=== PATIENT | female | born 1975 | race Caucasian/White ===

== ENCOUNTER 2018-12-23 17:29 | Emergency (ER) | payer SELFPAY ==
[2018-12-23 17:50] VITALS: BP 126/81; PULSE 89
--- NOTE | 2018-12-23 19:45 | EDM.PDOC ---
ED HPI GENERAL MEDICAL PROBLEM - General Chief Complaint: General Stated Complaint: SHARP PAIN IN ARM AND LEG AND NAUSEA Time Seen by Provider: 12/23/18 18:25 Source of Information: Reports: Patient, RN Notes Reviewed - History of Present Illness INITIAL COMMENTS - FREE TEXT/NARRATIVE: 43 year old female comes in with concern about increased dizziness the past 2 to 3 days. She has had intermitent shooting pain down her L arm, states she has been "dropping things with her L hand" Occasional "pounding sensation" L groin. No headache, neck or back pain. No fever, chills, chest pain, dyspnea, visual or speech difficulty. No difficulty with balance or walking. She has been very busy the last few days, drinking more caffiene than usual. Not aware of any injury. No hx Htn, diabetes or other known medical problems. - Related Data Allergies Allergy/AdvReac Type Severity Reaction Status Date / Time No Known Allergies Allergy Verified 12/23/18 17:46 Home Meds: Home Meds . [No Known Home Meds] 12/23/18 [History] Past Medical History - Past Health History Medical/Surgical History: Denies Medical/Surgical History Social & Family History - Tobacco Use Smoking Status *Q: Current Every Day Smoker Years of Tobacco use: 20 Packs/Tins Daily: 1 - Recreational Drug Use Recreational Drug Use: Yes Drug Use in Last 12 Months: Yes Other Recreational Drug Type: stopped drugs 9 months ago ED ROS GENERAL - Review of Systems Review Of Systems: See Below Constitutional: Denies: Fever, Chills, Diaphoresis HEENT: Denies: Sinus Problem, Throat Pain Respiratory: Denies: Shortness of Breath Cardiovascular: Denies: Chest Pain GI/Abdominal: Denies: Abdominal Pain, Nausea, Vomiting Musculoskeletal: Reports: Shoulder Pain, Arm Pain. Denies: Back Pain, Joint Pain Skin: Denies: Rash Neurological: Reports: Dizziness, Numbness (occasional numbness finger tips of L hand). Denies: Headache, Trouble Speaking, Difficulty Walking ED EXAM, GENERAL - Physical Exam Exam: See Below General Appearance: Alert, Anxious Eye Exam: Bilateral Eye: PERRL Throat/Mouth: Normal Inspection, Normal Oropharynx Head: Atraumatic Neck: Supple. No: Tender Lateral, Tender Midline Respiratory/Chest: No Respiratory Distress, Lungs Clear, Normal Breath Sounds Cardiovascular: Regular Rate, Rhythm GI/Abdominal: Soft, Non-Tender Back Exam: No: CVA Tenderness (L), CVA Tenderness (R) Extremities: Normal Inspection, Normal Range of Motion. No: Pedal Edema, Leg Pain, Redness Neurological: Alert, Oriented, No Motor/Sensory Deficits, Other (finger to nose testing normal) Skin Exam: Warm, Dry, Normal Color, No Rash EKG INTERPRETATION EKG Date: 12/23/18 Rhythm: NSR [place]: Normal P-Wave: Present QRS: Normal ST-T: Normal Course - Vital Signs Last Recorded V/S: Last Vital Signs Temp 99.2 F 12/23/18 17:47 Pulse 89 12/23/18 17:47 Resp 16 12/23/18 17:47 BP 126/81 12/23/18 17:47 Pulse Ox 100 12/23/18 17:47 - Orders/Labs/Meds Orders: Active Orders 24 hr Category Date Time Status EKG 12 Lead [EKG Documentation Completion] [RC] STAT Care 12/23/18 18:48 Active TSH [CHEM] Stat Lab 12/23/18 20:03 Ordered Labs: Laboratory Tests 12/23/18 12/23/18 Range/Units 18:59 18:59 WBC 10.72 H (3.98-10.04) K/mm3 RBC 4.20 (3.98-5.22) M/mm3 Hgb 13.6 (11.2-15.7) gm/dl Hct 39.5 (34.1-44.9) % MCV 94.0 (79.4-94.8) fl MCH 32.4 H (25.6-32.2) pg MCHC 34.4 (32.2-35.5) g/dl RDW Std Deviation 40.9 (36.4-46.3) fL Plt Count 273 (182-369) K/mm3 MPV 9.9 (9.4-12.3) fl Neut % (Auto) 57.2 (34.0-71.1) % Lymph % (Auto) 33.6 (19.3-51.7) % [place] % (Auto) 6.3 (4.7-12.5) % Eos % (Auto) 2.2 (0.7-5.8) Baso % (Auto) 0.6 (0.1-1.2) % Neut # (Auto) 6.13 (1.56-6.13) K/mm3 Lymph # (Auto) 3.60 (1.18-3.74) K/mm3 [place] # (Auto) 0.68 H (0.24-0.36) K/mm3 Eos # (Auto) 0.24 (0.04-0.36) K/mm3 Baso # (Auto) 0.06 (0.01-0.08) K/mm3 Manual Slide Review Sodium 139 (136-145) mEq/L Potassium 3.5 (3.5-5.1) mEq/L Chloride 106 (98-107) mEq/L Carbon Dioxide 26 (21-32) mEq/L Anion Gap 10.5 (5-15) BUN 10 (7-18) mg/dL Creatinine 0.7 (0.55-1.02) mg/dL Est Cr Clr Drug Dosing 77.39 mL/min Estimated GFR (MDRD) > 60 (>60) mL/min BUN/Creatinine Ratio 14.3 (14-18) Glucose 85 (74-106) mg/dL Calcium 8.7 (8.5-10.1) mg/dL Total Bilirubin 0.2 (0.2-1.0) mg/dL AST 11 L (15-37) U/L ALT 9 L (14-59) U/L Alkaline Phosphatase 45 L (46-116) U/L Total Protein 7.2 (6.4-8.2) g/dl Albumin 3.7 (3.4-5.0) g/dl Globulin 3.5 gm/dL Albumin/Globulin Ratio 1.1 (1-2) Departure - Departure Time of Disposition: 19:51 Disposition: Home, Self-Care 01 Condition: Fair Clinical Impression: Dizziness, Cervical radiculopathy - Discharge Information Referrals: PCP,None [Primary Care Provider] - Forms: ED Department Discharge Additional Instructions: rest, drink plenty of water to maintain hydration, advil or ibuprofen 2 to 3 times daily if needed for discomfort. Try reduce caffeine intake. Eat regular meals and snacks. Follow up clinic if not getting back to normal within 2 to 3 days as expected. Call [phone] if needed for appointment. Return to ED if symptoms worsening in any way. - My Orders Last 24 Hours: My Active Orders 12/23/18 18:48 EKG 12 Lead [EKG Documentation Completion] [RC] STAT 12/23/18 20:03 TSH [CHEM] Stat - Assessment/Plan Last 24 Hours: My Active Orders 12/23/18 18:48 EKG 12 Lead [EKG Documentation Completion] [RC] STAT 12/23/18 20:03 TSH [CHEM] Stat
== END 2018-12-23 20:13 | disposition home or self-care (01) ==
LOC: JD.ED 17:29
DX: M54.12 Radiculopathy, cervical region (principal); R42 Dizziness and giddiness; F17.210 Nicotine dependence, cigarettes, uncomplicated
CPT/HCPCS: 36415; 80053; 84443; 85025; 93005; 93010; 99283; 99284-25

== ENCOUNTER 2020-03-14 09:17 | Emergency (ER) | payer SELFPAY ==
--- NOTE | 2020-03-14 09:52 | EDM.PDOC ---
ED HPI GENERAL MEDICAL PROBLEM - General Chief Complaint: ENT Problem Stated Complaint: LOSS OF VISION IN RIGHT EYE Time Seen by Provider: 03/14/20 09:35 Source of Information: Reports: Patient, Family History Limitations: Reports: No Limitations - History of Present Illness INITIAL COMMENTS - FREE TEXT/NARRATIVE: The patient presents with right sided vision loss. She said at about 8pm last night she was having intercourse and she developed head pressure and she lost vision in her right eye. She went to bed thinking this would get better but it did not. When she covers her left eye she can see shadows in the right eye and has 20/200 vision. In the left eye she has 20/20. With both eyes open she cannot see in the right visual field. This has never happened before. She does have a history of migraines when she was younger but she never had visual changes with it. She feels shaky all over. She has no numbness or weakness. She has no fever, chills, cough, congestion, runny nose, chest pain, shortness of breath, abdominal pain, nausea or vomiting. She has no medical problems. Onset: Sudden Duration: Day(s): (last night at 8pm) Location: Reports: Head Quality: Reports: Pressure Severity: Moderate Improves with: Reports: None Worsens with: Reports: None Associated Symptoms: Reports: Headaches. Denies: Chest Pain, Cough, Fever/Chills, Nausea/Vomiting, Shortness of Breath Headache Pain Score (Numeric/FACES): 6 - Related Data Allergies Allergy/AdvReac Type Severity Reaction Status Date / Time No Known Allergies Allergy Verified 03/14/20 09:27 Home Meds: Home Meds . [No Known Home Meds] 12/23/18 [History] Past Medical History - Past Health History Medical/Surgical History: Denies Medical/Surgical History Social & Family History - Tobacco Use Tobacco Use Status *Q: Current Every Day Tobacco User Years of Tobacco use: 20 Packs/Tins Daily: 1 - Caffeine Use Caffeine Use: Reports: Coffee - Recreational Drug Use Recreational Drug Use: No ED ROS ENT - Review of Systems Review Of Systems: See Below Constitutional: Reports: No Symptoms HEENT: Reports: Vision Change Respiratory: Reports: No Symptoms Cardiovascular: Reports: No Symptoms Endocrine: Reports: No Symptoms GI/Abdominal: Reports: No Symptoms : Reports: No Symptoms Musculoskeletal: Reports: No Symptoms Skin: Reports: No Symptoms Neurological: Reports: Headache. Denies: Numbness, Weakness ED EXAM, ENT - Physical Exam Exam: See Below Exam Limited By: No Limitations General Appearance: Alert, No Apparent Distress Eye Exam: Right Eye: Vision Changes, Bilateral Eye: EOMI, Normal Fundi, PERRL Ears: Normal External Exam Nose: Normal Inspection Head: Atraumatic, Normocephalic Neck: Normal Inspection Respiratory/Chest: No Respiratory Distress, Lungs Clear, Normal Breath Sounds Cardiovascular: Regular Rate, Rhythm, No Edema, No Murmur GI/Abdominal: Soft, Non-Tender, No Organomegaly, No Mass Back: Normal Inspection Extremities: Normal Inspection Neurological: Alert, Oriented, No Motor/Sensory Deficits Course - Vital Signs Last Recorded V/S: Last Vital Signs Temp 97.6 F 03/14/20 09:24 Pulse 74 03/14/20 09:24 Resp 18 03/14/20 09:24 BP 129/84 03/14/20 09:24 Pulse Ox 100 03/14/20 09:24 - Orders/Labs/Meds Orders: Active Orders 24 hr Category Date Time Status Cardiac Monitoring [RC] . DIRECTED Care 03/14/20 09:44 Active Labs: Laboratory Tests 03/14/20 03/14/20 03/14/20 Range/Units 09:56 09:56 09:56 WBC 11.54 H (3.98-10.04) K/mm3 RBC 4.58 (3.98-5.22) M/mm3 Hgb 14.7 (11.2-15.7) gm/dl Hct 43.2 (34.1-44.9) % MCV 94.3 (79.4-94.8) fl MCH 32.1 (25.6-32.2) pg MCHC 34.0 (32.2-35.5) g/dl RDW Std Deviation 42.7 (36.4-46.3) fL Plt Count 253 (182-369) K/mm3 MPV 10.0 (9.4-12.3) fl Neut % (Auto) 75.3 H (34.0-71.1) % Lymph % (Auto) 17.7 L (19.3-51.7) % [place] % (Auto) 5.5 (4.7-12.5) % Eos % (Auto) 1.0 (0.7-5.8) Baso % (Auto) 0.3 (0.1-1.2) % Neut # (Auto) 8.69 H (1.56-6.13) K/mm3 Lymph # (Auto) 2.04 (1.18-3.74) K/mm3 [place] # (Auto) 0.64 H (0.24-0.36) K/mm3 Eos # (Auto) 0.12 (0.04-0.36) K/mm3 Baso # (Auto) 0.03 (0.01-0.08) K/mm3 Manual Slide Review Normal smear ESR 6 (0-20) mm/hr PT 10.7 (9.7-12.0) SECONDS INR 1.00 APTT 23.6 (21.7-31.4) SECONDS D-Dimer, Quantitative 0.49 (0.19-0.50) mg/L Sodium (136-145) mEq/L Potassium (3.5-5.1) mEq/L Chloride (98-107) mEq/L Carbon Dioxide (21-32) mEq/L Anion Gap (5-15) BUN (7-18) mg/dL Creatinine (0.55-1.02) mg/dL Est Cr Clr Drug Dosing mL/min Estimated GFR (MDRD) (>60) mL/min BUN/Creatinine Ratio (14-18) Glucose (74-106) mg/dL Calcium (8.5-10.1) mg/dL Total Bilirubin (0.2-1.0) mg/dL AST (15-37) U/L ALT (14-59) U/L Alkaline Phosphatase (46-116) U/L C-Reactive Protein (<1.0) mg/dL Total Protein (6.4-8.2) g/dl Albumin (3.4-5.0) g/dl Globulin gm/dL Albumin/Globulin Ratio (1-2) 03/14/20 Range/Units 09:56 WBC (3.98-10.04) K/mm3 RBC (3.98-5.22) M/mm3 Hgb (11.2-15.7) gm/dl Hct (34.1-44.9) % MCV (79.4-94.8) fl MCH (25.6-32.2) pg MCHC (32.2-35.5) g/dl RDW Std Deviation (36.4-46.3) fL Plt Count (182-369) K/mm3 MPV (9.4-12.3) fl Neut % (Auto) (34.0-71.1) % Lymph % (Auto) (19.3-51.7) % [place] % (Auto) (4.7-12.5) % Eos % (Auto) (0.7-5.8) Baso % (Auto) (0.1-1.2) % Neut # (Auto) (1.56-6.13) K/mm3 Lymph # (Auto) (1.18-3.74) K/mm3 [place] # (Auto) (0.24-0.36) K/mm3 Eos # (Auto) (0.04-0.36) K/mm3 Baso # (Auto) (0.01-0.08) K/mm3 Manual Slide Review ESR (0-20) mm/hr PT (9.7-12.0) SECONDS INR APTT (21.7-31.4) SECONDS D-Dimer, Quantitative (0.19-0.50) mg/L Sodium 140 (136-145) mEq/L Potassium 4.5 (3.5-5.1) mEq/L Chloride 103 (98-107) mEq/L Carbon Dioxide 24 (21-32) mEq/L Anion Gap 17.5 H (5-15) BUN 11 (7-18) mg/dL Creatinine 0.9 (0.55-1.02) mg/dL Est Cr Clr Drug Dosing 59.57 mL/min Estimated GFR (MDRD) > 60 (>60) mL/min BUN/Creatinine Ratio 12.2 L (14-18) Glucose 106 (74-106) mg/dL Calcium 9.4 (8.5-10.1) mg/dL Total Bilirubin 0.5 (0.2-1.0) mg/dL AST 14 L (15-37) U/L ALT 9 L (14-59) U/L Alkaline Phosphatase 40 L (46-116) U/L C-Reactive Protein < 0.2 (<1.0) mg/dL Total Protein 7.6 (6.4-8.2) g/dl Albumin 3.9 (3.4-5.0) g/dl Globulin 3.7 gm/dL Albumin/Globulin Ratio 1.1 (1-2) Meds: Medications Discontinued Medications Generic Name Dose Route Start Last Admin Trade Name Magi PRN Reason Stop Dose Admin Aspirin 324 mg 03/14/20 11:18 Aspirin PO 03/14/20 11:19 ONETIME ONE - Re-Assessments/Exams Free Text/Narrative Re-Assessment/Exam: 03/14/20 09:53 I ordered labs and a CT of her head. She had 20/20 in the left eye and 20/200 in the right eye. Her pressure was 18 in the left eye and 26 in the right eye. Structurally the eye looks normal. Funduscopic exam was normal. 03/14/20 11:04 Her WBC was slightly elevated at 11.54. Her D-dimer, PT and PTT are negative. Her anion gap was elevated at 17.5. The CT of her head shows a low density area within the medial left occipital and parietal junction. This may represent early infarct. Recommend MRI to confirm. No findings of intracranial hemorr odalys is seen. 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 03/14/20 11:27 Dr Pham agreed she had a stroke. He recommended she come there for further testing. I talked with Dr Nash the hospitalist and he wanted an aspirin given. I have ordered that. Departure - Departure Time of Disposition: 11:35 Disposition: DC/Tfer to Acute Hospital 02 Condition: Serious Clinical Impression: CVA (cerebral vascular accident) Qualifiers: CVA mechanism: unspecified Qualified Code(s): I63.9 - Cerebral infarction, unspecified - Discharge Information Referrals: PCP,None [Primary Care Provider] - Forms: ED Department Discharge Sepsis Event Note (ED) - Evaluation Sepsis Screening Result: No Definite Risk - Focused Exam Vital Signs: Vital Signs Temp Pulse Resp BP Pulse Ox 03/14/20 09:24 97.6 F 74 18 129/84 100 - My Orders Last 24 Hours: My Active Orders 03/14/20 09:44 Cardiac Monitoring [RC] . DIRECTED - Assessment/Plan Last 24 Hours: My Active Orders 03/14/20 09:44 Cardiac Monitoring [RC] . DIRECTED
--- NOTE | 2020-03-14 10:36 | CT ---
Technique stated that intravenous contrast was utilized. This is incorrect and intravenous contrast was not utilized. --- Addendum1 above dictated on [03/14/2020 12:53] by [Patrick Garcia Hilton J.] --- --- Addendum1 above signed on [03/14/2020 12:54] by [Patrick Garcia Hilton J.] --- --- Original report below dictated on [03/14/2020 10:32] by [Patrick Garcia Hilton J.] --- --- Original report below signed on [03/14/2020 10:33] by [Patrick Garcia Hilton J.] --- Head CT Technique: Multiple axial sections through the brain were obtained. Intravenous contrast was utilized. Reconstructed coronal and sagittal images were obtained. Comparison: No prior intracranial imaging is available. Findings: Ventricles along with basal cisterns and sulci over the convexities are within normal limits. Diminished density is noted at the left occipital and parietal junction. This low density measures approximately 2.6 cm x 2.8 cm x 2.7 cm. No other abnormal parenchymal density is appreciated. No evidence of intracranial hemorrhage. No midline shift or mass-effect is appreciated. Bone window settings were reviewed. No definite retrobulbar abnormality is appreciated within the visualized orbits. Visualized mastoid sinuses and visualized paranasal sinuses show nothing acute. No acute calvarial finding is appreciated. Impression: 1. Low density area within the medial left occipital and parietal junction. This may represent early infarct. Recommend MRI to confirm. 2. No findings of intracranial hemorrhage is seen. Diagnostic code #5 --- Addendum1 signed ---
[2020-03-14] MEDS ORDERED: Aspirin 81 MG Tab.Chew PO ONE (11:18)
[2020-03-14 13:52] VITALS: BP 129/89; PULSE 88
== END 2020-03-14 11:56 ==
LOC: JD.ED 09:17
DX: I63.9 Cerebral infarction, unspecified (principal); F17.210 Nicotine dependence, cigarettes, uncomplicated
CPT/HCPCS: 36415; 70450; 80053; 85025; 85379; 85610; 85652; 85730; 86140; 87635; 93005; 99285; A9270; 93010; U0002

== ENCOUNTER 2020-03-31 16:54 | Emergency (ER) | payer MEDICAID ==
--- NOTE | 2020-03-31 18:00 | CT ---
Head CT Technique: Multiple axial sections through the brain were obtained. Intravenous contrast was not utilized. Reconstructed coronal and sagittal images were obtained. Comparison: Prior head CT exam of 03/14/20. Findings: Diminished density is again noted within the posterior left parieto-occipital region. This is similar to prior exam in density and size. No other abnormal parenchymal densities are seen. No evidence of intracranial hemorrhage. No midline shift or mass-effect is appreciated. Bone window settings were reviewed. Visualized mastoid sinuses and visualized paranasal sinuses show nothing acute. No acute calvarial abnormality is seen. Impression: 1. Low density within the left posterior parieto-occipital region. This remains stable from previous study. 2. No other acute abnormality is definitely appreciated on noncontrast head CT. Note: Please correlate if patient's symptoms warrant further evaluation by MRI. Diagnostic code #3
--- NOTE | 2020-03-31 18:02 | EDM.PDOC ---
ED HPI GENERAL MEDICAL PROBLEM - General Chief Complaint: Neuro Symptoms/Deficits Stated Complaint: HEADACHE/NUMBNESS IN HEAD/HIGH BP Time Seen by Provider: 03/31/20 17:10 Source of Information: Reports: Patient, RN Notes Reviewed - History of Present Illness INITIAL COMMENTS - FREE TEXT/NARRATIVE: 44 yr old female sent here from clinic after going to clinic with sx of [place] and R sided facial and forehead "numbness" but on questioning described as more of a fullness and pressure sensation. Hx of a "stroke" with loss of central and R sided peripheral vision R eye about 16 days ago. She was diagnosed here, transferred to [facility]. Head CT showed a area of low density left occipital parietal area. No upper or lower extremity symptoms today. No worsening of vision, no facial droop or speech difficulty today. She is currently on aspirin and plavix. This was called a stroke alert based on initial presentation and hx of stroke about 16 days ago. Left Headache Pain Score (Numeric/FACES): 4 - Related Data Allergies Allergy/AdvReac Type Severity Reaction Status Date / Time No Known Allergies Allergy Verified 03/31/20 17:10 Home Meds: Home Meds Aspirin 81 mg PO DAILY 03/31/20 [History] Clopidogrel [Plavix] 75 mg PO DAILY 03/31/20 [History] atorvaSTATin [Lipitor] 20 mg PO BEDTIME 03/31/20 [History] Past Medical History - Past Health History Medical/Surgical History: Denies Medical/Surgical History HEENT History: Reports: Impaired Vision Cardiovascular History: Reports: Heart Murmur, Other (See Below) Other Cardiovascular History: pts states she has a "hole" in the back of her heart EDI ARCHITECT History: Reports: , Other (See Below) Other EDI ARCHITECT History: excessive vaginal bleeding Neurological History: Reports: CVA, Migraines - Past Surgical History HEENT Surgical History: Reports: Oral Surgery Cardiovascular Surgical History: Reports: Other (See Below) Female Surgical History: Reports: Section, Tubal Ligation Social & Family History - Family History Family Medical History: No Pertinent Family History - Tobacco Use Tobacco Use Status *Q: Current Every Day Tobacco User Years of Tobacco use: 20 Packs/Tins Daily: 0.4 - Caffeine Use Caffeine Use: Reports: Coffee - Recreational Drug Use Recreational Drug Use: No ED ROS GENERAL - Review of Systems Review Of Systems: See Below Constitutional: Denies: Fever, Chills, Diaphoresis HEENT: Denies: Rhinitis, Sinus Problem, Throat Pain, Vertigo, Vision Change Respiratory: Denies: Shortness of Breath Cardiovascular: Denies: Chest Pain GI/Abdominal: Denies: Abdominal Pain, Nausea, Vomiting Musculoskeletal: Denies: Neck Pain, Back Pain Skin: Reports: No Symptoms Neurological: Reports: Headache. Denies: Numbness, Tingling, Trouble Speaking, Difficulty Walking, Weakness ED EXAM, NEURO - Physical Exam Exam: See Below General Appearance: Alert, Anxious (mild) Eye Exam: Bilateral Eye: Other (pupils are mid size, equal, mildly reactive bilat) Ears: Normal External Exam Throat/Mouth: Normal Inspection, Normal Oropharynx Head Exam: Atraumatic Neck: Supple Respiratory/Chest: No Respiratory Distress, Lungs Clear, Normal Breath Sounds Cardiovascular: Regular Rate, Rhythm Neurological: Alert, No Motor/Sensory Deficits, Oriented x 3, Other (no neurologic drift, finger to nose testing normal, nl and fluent speech pattern, no facial droop) Extremities: Normal Inspection, Normal Range of Motion Skin Exam: Warm, Dry, Normal Color #1 Interpretation EKG Date: 03/31/20 Rhythm: NSR [place]: Normal P-Wave: Present QRS: Normal ST-T: Normal QT: Normal Course - Vital Signs Last Recorded V/S: Last Vital Signs Temp 96.8 F L 03/31/20 17:01 Pulse 66 03/31/20 18:25 Resp 18 03/31/20 18:25 BP 113/74 03/31/20 18:25 Pulse Ox 97 03/31/20 18:25 - Orders/Labs/Meds Orders: Active Orders 24 hr Category Date Time Status Blood Glucose Check, Bedside [RC] ONETIME Care 03/31/20 17:09 Active EKG 12 Lead [EKG Documentation Completion] [] STAT Care 03/31/20 17:30 Active Labs: Laboratory Tests 03/31/20 03/31/20 03/31/20 Range/Units 17:09 18:11 18:11 WBC 9.22 (3.98-10.04) K/mm3 RBC 4.38 (3.98-5.22) M/mm3 Hgb 14.1 (11.2-15.7) gm/dl Hct 41.2 (34.1-44.9) % MCV 94.1 (79.4-94.8) fl MCH 32.2 (25.6-32.2) pg MCHC 34.2 (32.2-35.5) g/dl RDW Std Deviation 42.2 (36.4-46.3) fL Plt Count 280 (182-369) K/mm3 MPV 10.0 (9.4-12.3) fl Neut % (Auto) 60.1 (34.0-71.1) % Lymph % (Auto) 30.7 (19.3-51.7) % [place] % (Auto) 5.7 (4.7-12.5) % Eos % (Auto) 2.8 (0.7-5.8) Baso % (Auto) 0.5 (0.1-1.2) % Neut # (Auto) 5.53 (1.56-6.13) K/mm3 Lymph # (Auto) 2.83 (1.18-3.74) K/mm3 [place] # (Auto) 0.53 H (0.24-0.36) K/mm3 Eos # (Auto) 0.26 (0.04-0.36) K/mm3 Baso # (Auto) 0.05 (0.01-0.08) K/mm3 Sodium 143 (136-145) mEq/L Potassium 3.9 (3.5-5.1) mEq/L Chloride 104 (98-107) mEq/L Carbon Dioxide 27 (21-32) mEq/L Anion Gap 15.9 H (5-15) BUN 11 (7-18) mg/dL Creatinine 0.7 (0.55-1.02) mg/dL Est Cr Clr Drug Dosing 76.58 mL/min Estimated GFR (MDRD) > 60 (>60) mL/min BUN/Creatinine Ratio 15.7 (14-18) Glucose 101 (74-106) mg/dL POC Glucose 74 (70-105) mg/dL Calcium 9.4 (8.5-10.1) mg/dL Total Bilirubin 0.3 (0.2-1.0) mg/dL AST 14 L (15-37) U/L ALT 8 L (14-59) U/L Alkaline Phosphatase 41 L (46-116) U/L Total Protein 7.4 (6.4-8.2) g/dl Albumin 3.9 (3.4-5.0) g/dl Globulin 3.5 gm/dL Albumin/Globulin Ratio 1.1 (1-2) - Re-Assessments/Exams Free Text/Narrative Re-Assessment/Exam: 03/31/20 18:15 Small area of diminished density is again noted within the left parieto- occipital region. No blood. See Radiology report for details. Initial glucose was only 74. Have given her something to drink, repeat glucose over 100. Departure - Departure Time of Disposition: 19:00 Disposition: Home, Self-Care 01 Condition: Good Clinical Impression: Hypoglycemia Headache Qualifiers: Headache type: unspecified Headache chronicity pattern: acute headache Intractability: not intractable Qualified Code(s): R51.9 - Headache, unspecified - Discharge Information Referrals: PCP,None [Primary Care Provider] - Forms: ED Department Discharge Additional Instructions: Your blood sugar was mildly low on arrival to ED at just 74. Any blood sugar below around 80 can cause symptoms of weakness, dizziness, possible speech difficulty and other stroke like symptoms. Eat regular meals and snacks to keep your blood sugar in a more normal range. Stop smoking as planned. Continue with further testing as planned. Continue current medications. Return to ED as needed if symptoms worsening in any way. Sepsis Event Note (ED) - Evaluation Sepsis Screening Result: No Definite Risk - Focused Exam Vital Signs: Vital Signs Temp Pulse Resp BP Pulse Ox 03/31/20 18:25 66 18 113/74 97 03/31/20 17:01 96.8 F L 72 17 135/96 H 100 - My Orders Last 24 Hours: My Active Orders 03/31/20 17:09 Blood Glucose Check, Bedside [RC] ONETIME 03/31/20 17:30 EKG 12 Lead [EKG Documentation Completion] [RC] STAT - Assessment/Plan Last 24 Hours: My Active Orders 03/31/20 17:09 Blood Glucose Check, Bedside [RC] ONETIME 03/31/20 17:30 EKG 12 Lead [EKG Documentation Completion] [RC] STAT
[2020-03-31 18:29] VITALS: BP 113/74; PULSE 66
== END 2020-03-31 18:55 | disposition home or self-care (01) ==
LOC: JD.ED 16:54
DX: R51.9 Headache, unspecified (principal); E16.2 Hypoglycemia, unspecified; Z72.0 Tobacco use; Z79.82 Long term (current) use of aspirin; Z79.02 Long term (current) use of antithrombotics/antiplatelets
CPT/HCPCS: 36415; 70450; 70450-26; 80053; 82962; 85025; 93005; 93010; 99284; 99284-25

== ENCOUNTER 2020-06-10 13:03 | Emergency (ER) | payer OTHER ==
[2020-06-10 13:13] VITALS: BP 120/81; PULSE 74
--- NOTE | 2020-06-10 13:47 | EDM.PDOC ---
ED HPI GENERAL MEDICAL PROBLEM - General Chief Complaint: Eye Problems Stated Complaint: R EYE COMPLAINT/TWITCHING Time Seen by Provider: 06/10/20 13:32 Source of Information: Reports: Patient History Limitations: Reports: No Limitations - History of Present Illness INITIAL COMMENTS - FREE TEXT/NARRATIVE: 44-year-old female presents to the ED for evaluation of twitching of her right upper eyelid that started yesterday and was infrequent but is much more frequent and regular today. She has no control over this. Of concern to the patient is that she had a CVA 2 months ago which resulted in the loss of her visual field right temporal hemianopsia and mild left visual field loss in the medial visual field. It has not returned since the CVA. Her work-up identified that she has a hole in her heart. She is not clear whether this represents an atrial septal defect or a ventricular septal defect. She is scheduled for endovascular repair on Monday next week i.e. June 17. She does not have any other visual field deficits that are new and no other systemic signs of neurological symptoms. Appreciates that sunlight does bother her eyes quite extensively since her CVA. Her medications include Plavix 75 mg daily and aspirin 81 mg daily and Lipitor to reduce her serum cholesterol. 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 (see below) (None.) - Related Data Allergies Allergy/AdvReac Type Severity Reaction Status Date / Time No Known Allergies Allergy Verified 06/10/20 13:14 Home Meds: Home Meds Aspirin 81 mg PO DAILY 03/31/20 [History] Clopidogrel [Plavix] 75 mg PO DAILY 03/31/20 [History] atorvaSTATin [Lipitor] 20 mg PO BEDTIME 03/31/20 [History] Past Medical History - Past Health History Medical/Surgical History: Denies Medical/Surgical History HEENT History: Reports: Impaired Vision Cardiovascular History: Reports: Heart Murmur, High Cholesterol, Other (See Below) Other Cardiovascular History: pts states she has a "hole" in the back of her heart 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: Reports: , Other (See Below) Other 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 CONSULTANT History: excessive vaginal bleeding Neurological History: Reports: CVA, Migraines - Infectious Disease History Infectious Disease History: Reports: Influenza - Past Surgical History HEENT Surgical History: Reports: Oral Surgery Cardiovascular Surgical History: Reports: Other (See Below) Female Surgical History: Reports: Section, Tubal Ligation Social & Family History - Family History Family Medical History: No Pertinent Family History - Tobacco Use Tobacco Use Status *Q: Current Every Day Tobacco User Years of Tobacco use: 20 Packs/Tins Daily: 0.2 - Caffeine Use Caffeine Use: Reports: Coffee - Recreational Drug Use Recreational Drug Use: Yes Drug Use in Last 12 Months: No Recreational Drug Type: Reports: Methamphetamine - Living Situation & Occupation Living situation: Reports: Single Occupation: Unemployed ED ROS GENERAL - Review of Systems Review Of Systems: See Below Constitutional: Reports: Malaise, Fatigue (Since CVA.). Denies: Fever, Chills, Weight Loss HEENT: Reports: Glasses, Other (Itching of right upper eyelid today and yesterday.) Respiratory: Reports: No Symptoms Cardiovascular: Reports: Other (Has a known murmur of her heart with recent discovery of a hole in her heart. This was part of her CVA work-up. She was told that she had a murmur most of her life but she has never had an echocardiogram before. She is unable to identify to me whether this is an atrial septal defect or ventricula) Endocrine: Reports: Fatigue GI/Abdominal: Reports: No Symptoms : Reports: No Symptoms Musculoskeletal: Reports: No Symptoms Skin: Reports: No Symptoms Neurological: Reports: Other (She reports that her memory is somewhat impaired since CVA and of course loss of visual field in the right temporal aspect of her visual field bitemporal hemianopsia. She has a minimal defect of the medial visual field lower quadrant of her left eye as well.) Psychiatric: Reports: No Symptoms Hematologic/Lymphatic: Reports: No Symptoms ED EXAM GENERAL W FULL EYE - Physical Exam Exam: See Below Exam Limited By: No Limitations General Appearance: Alert, WD/WN, Anxious, Other (And anxious. Temperature is 36.3. Heart rate 74 and sinus respect rate is 12 with O2 sats 100% room air BP 120/81.) Eye Exam: Bilateral Eye: Normal Inspection, PERRL, Other (Patient has definite loss of the right temporal field i.e. temporal hemianopsia on visual field exam. She does have intermittent twitching of her right upper eyelid which is subtle to me but more obvious to the patient.) Eyelids: Bilateral: Other (She has intermittent twitching of her right upper eyelid.) Conjunctiva & Sclera: Bilateral: Normal Appearance Cornea Exam: Bilateral: Normal Appearance Extraocular Movements: Bilateral: Intact Pupils: Normal Accommodation Pupillary Size: Bilateral: 6 mm Pupillary Reaction: Right: Sluggish Anterior Chamber: Bilateral: Normal Appearance Comments: Visual field assessment patient has a right temporal hemianopsia. She appreciates this in the left eye as well when looking to the right in the inferior quadrant and medial aspect of her left visual field as well. Throat/Mouth: Normal Inspection, Normal Lips, Normal Oropharynx Neck: Normal Inspection, Supple, Non-Tender, Full Range of Motion. No: Carotid Bruit, Lymphadenopathy (L), Lymphadenopathy (R) Respiratory/Chest: No Respiratory Distress, Lungs Clear, Normal Breath Sounds, No Accessory Muscle Use Cardiovascular: Normal Peripheral Pulses, Regular Rate, Rhythm, No Edema, No Gallop, Systolic Murmur (Early systolic murmur graded at less than 1 out of 6 best appreciated left sternal border) GI/Abdominal: Normal Bowel Sounds, Soft, Non-Tender, No Organomegaly, No Diste ntion Extremities: Normal Inspection, Normal Range of Motion, Non-Tender, No Pedal Edema Neurological: Alert, Oriented, CN II-XII Intact, Normal Cognition Psychiatric: Normal Affect, Normal Mood Skin Exam: Warm, Dry, Intact, Normal Color, No Rash Course - Vital Signs Last Recorded V/S: Last Vital Signs Temp 36.3 C 06/10/20 13:10 Pulse 74 06/10/20 13:10 Resp 12 06/10/20 13:10 BP 120/81 06/10/20 13:10 Pulse Ox 100 06/10/20 13:10 - Radiology Interpretation Free Text/Narrative:: 44-year-old female presents to the ED due to development of twitching of her right upper eyelid yesterday. It was infrequent yesterday but much more frequent today and bothersome to the patient. She has never experienced this before. Patient suffered a CVA approximately 2 months ago and has lost visual acuity in her right eye in the temporal aspect. She has minimal loss of medial inferior quadrant in her left eye. This temporal hemianopsia of the right visual field has persisted and not improved since the CVA. The CVA prompted further investigations which include an echocardiogram which confirmed that she has a hole in her heart. It is unclear if this is an atrial septal defect or ventricular septal defect. Patient reports that she has been told she has a heart murmur off and on most of her life but has never had an echocardiogram before. 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 She is due for repair of the defect in her heart next Monday, June 17 endovascularly through the femoral artery. Examination did not reveal any further neurological deficits. She does have very subtle twitching of her right upper eyelid. Patient reassured that this is nothing to do with stroke or impending stroke. The cause of twitching of the upper eyelids is felt to do often be due to excessive eyestrain such as excessive reading or computer usage and it is unclear if of its etiology. It usually goes away on its own between 10 and 21 days. Departure - Departure Time of Disposition: 13:45 Disposition: Home, Self-Care 01 Condition: Fair Clinical Impression: Eyelid twitch - Discharge Information *PRESCRIPTION DRUG MONITORING PROGRAM REVIEWED*: Not Applicable *COPY OF PRESCRIPTION DRUG MONITORING REPORT IN PATIENT RANULFO: Not Applicable Referrals: PCP,None [Ordering Only Provider] - Forms: ED Department Discharge Additional Instructions: Evaluation in the emergency room today in regards to appreciating right upper eyelid twitching intermittently since yesterday. It was not as frequent yesterday but much more noticeable today. History of recent stroke with loss of your visual lateral/temporal field on the right side that has persisted. Upper eyelid twitching is of no concern. Exact cause is unknown. It often can be due to eyestrain from excessive reading or computer work. It will go away on its own within the next few weeks. The longest I have ever seen it last is 3 weeks. It is not related to underlying stroke that has occurred in the past. Sepsis Event Note (ED) - Evaluation Sepsis Screening Result: No Definite Risk - Focused Exam Vital Signs: Vital Signs Temp Pulse Resp BP Pulse Ox 06/10/20 13:10 36.3 C 74 12 120/81 100
== END 2020-06-10 13:54 | disposition home or self-care (01) ==
LOC: JD.ED 13:03
DX: R25.3 Fasciculation (principal); E78.00 Pure hypercholesterolemia, unspecified; Z86.73 Personal history of transient ischemic attack (TIA), and cerebral infarction without residual deficits; Z79.82 Long term (current) use of aspirin; Z79.02 Long term (current) use of antithrombotics/antiplatelets; Z79.899 Other long term (current) drug therapy; Z72.0 Tobacco use
CPT/HCPCS: 99283

== ENCOUNTER 2020-06-18 14:52 | Inpatient (IN) | payer MEDICAID, OTHER ==
--- NOTE | 2020-06-18 16:35 | EDM.PDOC ---
ED HPI GENERAL MEDICAL PROBLEM - General Chief Complaint: General Stated Complaint: COLD/SOB/HEAD PRESSURE Time Seen by Provider: 06/18/20 16:35 Source of Information: Reports: Patient History Limitations: Reports: No Limitations - History of Present Illness INITIAL COMMENTS - FREE TEXT/NARRATIVE: 44-year-old female presents to the ED after developing severe chills/rigors around noon hour today. She states she was so cold she could not warm up and put on excessive amount of close and turned up the heat. I note she was discharged from [facility] in [place] earlier this morning. Patient had undergone a endovascular repair of a large patent foramen ovale defect by Dr. Lane neurologist at [facility] in [place]. Procedure was carried out on June 18, 2020 is discovered as part of a work-up for a cerebrovascular accident which caused an infarct of the left medial occipital and temporal lobe ischemia without hemorrhagic transformation noted on MRI. She is known to have heterozygous prothrombin mutation but hematology felt this was unlikely be the cause of her stroke. She had a rather large patent foramen ovale with a right to left shunt given her rope score of 6 she denies feeling short of breath coughing and she never had any catheterization she has no dysuria urgency frequency no diarrhea or vomiting. She denies any bleeding from her right groin wound. She is walking with a slight limp. In the ED she definitely has a fever and is about 102 degrees by my assessment by palpation. CODE STATUS is DO NOT RESUSCITATE/DO NOT INTUBATE comfort measures only. Onset: Today, Sudden Onset Date: 06/18/20 Onset Time: 12:00 Duration: Hour(s):, Intermittent, Waxing/Waning Location: Reports: Generalized Quality: Reports: Ache (Neurolysed chills/rigors with fever.) Severity: Severe (Held headache.) Improves with: Reports: None (Severe chills/rigors especially around noon hour today.) Worsens with: Reports: None Context: Reports: Other (And underwent endovascular procedure yesterday in [facility] for closure of a large patent foramen ovale done endovascularly). Denies: Activity, Exercise, Lifting, Sick Contact, Trauma Associated Symptoms: Reports: Fever/Chills, Headaches, Loss of Appetite, Malaise, Weakness. Denies: Confusion, Chest Pain, Cough, cough w sputum, Diaphoresis, Nausea/Vomiting, Rash, Seizure, Shortness of Breath, Syncope Treatments METALLURGIST PROCESS: Reports: Other (see below) Right Head Pain Score (Numeric/FACES): 4 - Related Data Allergies Allergy/AdvReac Type Severity Reaction Status Date / Time No Known Allergies Allergy Verified 06/18/20 15:26 Home Meds: Home Meds Aspirin 81 mg PO DAILY 03/31/20 [History] Clopidogrel [Plavix] 75 mg PO DAILY 03/31/20 [History] atorvaSTATin [Lipitor] 20 mg PO BEDTIME 03/31/20 [History] Past Medical History - Past Health History Medical/Surgical History: Denies Medical/Surgical History HEENT History: Reports: Impaired Vision Cardiovascular History: Reports: Heart Murmur, High Cholesterol, Other (See Below) Other Cardiovascular History: pts states she has a "hole" in the back of her heart LAN SPECIALIST History: Reports: , Other (See Below) Other LAN SPECIALIST History: excessive vaginal bleeding Neurological History: Reports: CVA, Migraines Other Neuro History: CVA-03/18/20 Hematologic History: Reports: Other (See Below) Other Hematologic History: blood clotting disorder- makes her clot more - Infectious Disease History Infectious Disease History: Reports: Influenza - Past Surgical History HEENT Surgical History: Reports: Oral Surgery Cardiovascular Surgical History: Reports: Other (See Below) Other Cardiovascular Surgeries/Procedures: Pt reports she had sugery to close a hole in her heart. Female Surgical History: Reports: Section, Tubal Ligation Social & Family History - Family History Family Medical History: No Pertinent Family History - Tobacco Use Tobacco Use Status *Q: Current Every Day Tobacco User Years of Tobacco use: 20 Packs/Tins Daily: 0.5 - Caffeine Use Caffeine Use: Reports: Coffee - Recreational Drug Use Recreational Drug Use: No - Living Situation & Occupation Living situation: Reports: Single Occupation: Unemployed ED ROS GENERAL - Review of Systems Review Of Systems: See Below Constitutional: Reports: Fever, Chills, Malaise, Weakness, Fatigue, Decreased Appetite. Denies: Weight Loss HEENT: Reports: No Symptoms Respiratory: Reports: No Symptoms. Denies: Shortness of Breath, Wheezing, Pleuritic Chest Pain, Cough Cardiovascular: Reports: Dyspnea on Exertion, Lightheadedness. Denies: Chest Pain, Blood Pressure Problem, Claudication, Edema, Orthopnea Endocrine: Reports: Fatigue GI/Abdominal: Reports: Decreased Appetite. Denies: Abdominal Pain : Reports: No Symptoms Musculoskeletal: Reports: Muscle Pain (Mild generalized myalgia.) Skin: Reports: No Symptoms Neurological: Reports: Headache Psychiatric: Reports: No Symptoms Hematologic/Lymphatic: Reports: No Symptoms Immunologic: Reports: No Symptoms ED EXAM, GENERAL - Physical Exam Exam: See Below Exam Limited By: No Limitations General Appearance: Alert, WD/WN, No Apparent Distress, Other (Patient does feel very warm to palpation by my assessment. Temperatures only 37.4 degrees as recorded by the nursing staff. She feels much warmer than this. Heart rate was 100 and sinus tach on the monitor. Respiratory is 20 to 24/min with O2 sats of 99%. Initial blood pressure was 117/81 but f) Eye Exam: Bilateral Eye: Normal Inspection (No blepharal pallor or scleral icterus.), PERRL Throat/Mouth: Normal Inspection, Normal Lips, Normal Oropharynx Head: Atraumatic, Normocephalic Neck: Normal Inspection, Supple, Non-Tender, Full Range of Motion. No: Lymphadenopathy (L), Lymphadenopathy (R) Respiratory/Chest: No Respiratory Distress, Lungs Clear, Normal Breath Sounds, No Accessory Muscle Use, Prolonged Expiration Cardiovascular: Normal Peripheral Pulses, Regular Rate, Rhythm, No Edema, No Gallop, No Murmur, No Rub Peripheral Pulses: 3+: Carotid (L), Carotid (R), Posterior Tibial (L), Posterior Tibial (R), Dorsalis Pedis (L), Dorsalis Pedis (R) GI/Abdominal: Normal Bowel Sounds, Soft, Non-Tender, No Organomegaly, No Abnormal Bruit, No Mass, Pelvis Stable, Other (Wound in the right groin appears to be healing satisfactorily. There is an appropriate amount of hematoma and bruising in the area after having an endovascular procedure.) Back Exam: Normal Inspection. No: Full Range of Motion, CVA Tenderness (L), CVA Tenderness (R) Extremities: Normal Inspection, Normal Range of Motion, Non-Tender, No Pedal Edema Neurological: Alert, Oriented, CN II-XII Intact, Normal Cognition, Normal Gait Psychiatric: Normal Affect, Normal Mood Skin Exam: Warm, Dry, Intact, Normal Color, No Rash #1 Interpretation EKG Date: 06/18/20 Time: 17:25 Rhythm: NSR Rate (Beats/Min): 80 [place]: Normal P-Wave: Present (P wave is inverted V1) QRS: Other (Initial poor R wave progression may be due to lead placement. Mildly decreased voltage limb leads) ST-T: Other (Nonspecific T wave flattening aVL) QT: Normal EKG Interpretation Comments: Borderline ECG Course - Vital Signs Last Recorded V/S: Last Vital Signs Temp 37.8 C 06/18/20 17:39 Pulse 100 06/18/20 15:12 Resp 20 06/18/20 15:12 BP 117/81 06/18/20 15:12 Pulse Ox 99 06/18/20 15:12 - Orders/Labs/Meds Orders: Active Orders 24 hr Category Date Time Status Admission Status [Patient Status] [ADT] Routine ADT 06/18/20 20:03 Active EKG Documentation Completion [RC] STAT Care 06/18/20 16:47 Active CULTURE BLOOD [BC] Stat Lab 06/18/20 16:50 Received CULTURE BLOOD [BC] Stat Lab 06/18/20 17:10 Received Dextrose 5%-0.9% NaCl [Dextrose 5%-Normal Saline] 1,000 Med 06/18/20 16:45 Active ml IV ASDIRECTED Lactated Ringers [Ringers, Lactated] 1,000 ml Med 06/18/20 19:45 Active IV ASDIRECTED Potassium Chloride [KCl in Water 10 MEQ/100 ML] 10 meq Med 06/18/20 19:45 Active Premix Bag 1 bag IV Q1H Vancomycin 1.25 gm Med 06/18/20 19:37 Active Sodium Chloride 0.9% [Normal Saline] 250 ml IV ONETIME Blood Culture x2 Reflex Set [OM.PC] Stat Oth 06/18/20 16:47 Ordered Medication Orders Dextrose/Sodium Chloride (Dextrose 5%-Normal Saline) 1,000 mls @ 999 mls/hr IV ASDIRECTED TARUN Last Admin: 06/18/20 17:39 Dose: 999 mls/hr Documented by: [id number] Vancomycin HCl 1.25 gm/ Sodium (Chloride) 250 mls @ 250 mls/hr IV ONETIME ONE Stop: 06/18/20 20:36 Lactated Ringer's (Ringers, Lactated) 1,000 mls @ 500 mls/hr IV ASDIRECTED TARUN Potassium Chloride 10 meq/ (Premix) 100 mls @ 100 mls/hr IV Q1H TARUN Stop: 06/18/20 21:44 Labs: Laboratory Tests 06/18/20 06/18/20 06/18/20 Range/Units 16:50 16:50 16:50 WBC 11.12 H (3.98-10.04) K/mm3 RBC 3.93 L (3.98-5.22) M/mm3 Hgb 12.6 D (11.2-15.7) gm/dl Hct 37.4 (34.1-44.9) % MCV 95.2 H (79.4-94.8) fl MCH 32.1 (25.6-32.2) pg MCHC 33.7 (32.2-35.5) g/dl RDW Std Deviation 41.9 (36.4-46.3) fL Plt Count 188 D (182-369) K/mm3 MPV 10.5 (9.4-12.3) fl Neutrophils % (Manual) 83 H (40-60) % Band Neutrophils % 0 (0-10) % Lymphocytes % (Manual) 9 L (20-40) % Atypical Lymphs % 0 % Monocytes % (Manual) 8 (2-10) % Eosinophils % (Manual) 0 L (0.7-5.8) % Basophils % (Manual) 0 L (0.1-1.2) Platelet Estimate Adequate RBC Morph Comment Normal PT 11.3 (9.7-12.0) SECONDS INR 1.06 APTT 25.3 (21.7-31.4) SECONDS Sodium 139 (136-145) mEq/L Potassium 3.4 L (3.5-5.1) mEq/L Chloride 103 (98-107) mEq/L Carbon Dioxide 25 (21-32) mEq/L Anion Gap 14.4 (5-15) BUN 7 (7-18) mg/dL Creatinine 0.7 (0.55-1.02) mg/dL Est Cr Clr Drug Dosing 76.58 mL/min Estimated GFR (MDRD) > 60 (>60) mL/min BUN/Creatinine Ratio 10.0 L (14-18) Glucose 133 H (74-106) mg/dL Lactic Acid (0.4-2.0) mmol/L Calcium 8.3 L (8.5-10.1) mg/dL Magnesium 1.9 (1.8-2.4) mg/dl Total Bilirubin 0.4 (0.2-1.0) mg/dL AST 15 (15-37) U/L ALT 11 L (14-59) U/L Alkaline Phosphatase 39 L (46-116) U/L Troponin I 0.058 H* (0.00-0.056) ng/mL C-Reactive Protein 3.2 H* (<1.0) mg/dL NT-Pro-B Natriuret Pep (0-125) pg/mL Total Protein 6.7 (6.4-8.2) g/dl Albumin 3.5 (3.4-5.0) g/dl Globulin 3.2 gm/dL Albumin/Globulin Ratio 1.1 (1-2) Urine Color (Yellow) Urine Appearance (Clear) Urine pH (5.0-8.0) Ur Specific Minerva (1.005-1.030) Urine Protein (Negative) Urine Glucose (UA) (Negative) Urine Ketones (Negative) Urine Occult Blood (Negative) Urine Nitrite (Negative) Urine Bilirubin (Negative) Urine Urobilinogen (0.2-1.0) Ur Leukocyte Esterase (Negative) Urine RBC (0-5) /hpf Urine WBC (0-5) /hpf Ur Squamous Epith Cells (0-5) /hpf Urine Bacteria (FEW) /hpf Urine Mucus (FEW) /hpf SARS-CoV-2 RNA (JACIEL) (NEGATIVE) 06/18/20 06/18/20 06/18/20 Range/Units 16:50 16:50 17:45 WBC (3.98-10.04) K/mm3 RBC (3.98-5.22) M/mm3 Hgb (11.2-15.7) gm/dl Hct (34.1-44.9) % MCV (79.4-94.8) fl MCH (25.6-32.2) pg MCHC (32.2-35.5) g/dl RDW Std Deviation (36.4-46.3) fL Plt Count (182-369) K/mm3 MPV (9.4-12.3) fl Neutrophils % (Manual) (40-60) % Band Neutrophils % (0-10) % Lymphocytes % (Manual) (20-40) % Atypical Lymphs % % Monocytes % (Manual) (2-10) % Eosinophils % (Manual) (0.7-5.8) % Basophils % (Manual) (0.1-1.2) Platelet Estimate RBC Morph Comment PT (9.7-12.0) SECONDS INR APTT (21.7-31.4) SECONDS Sodium (136-145) mEq/L Potassium (3.5-5.1) mEq/L Chloride (98-107) mEq/L Carbon Dioxide (21-32) mEq/L Anion Gap (5-15) BUN (7-18) mg/dL Creatinine (0.55-1.02) mg/dL Est Cr Clr Drug Dosing mL/min Estimated GFR (MDRD) (>60) mL/min BUN/Creatinine Ratio (14-18) Glucose (74-106) mg/dL Lactic Acid 1.1 (0.4-2.0) mmol/L Calcium (8.5-10.1) mg/dL Magnesium (1.8-2.4) mg/dl Total Bilirubin (0.2-1.0) mg/dL AST (15-37) U/L ALT (14-59) U/L Alkaline Phosphatase (46-116) U/L Troponin I (0.00-0.056) ng/mL C-Reactive Protein (<1.0) mg/dL NT-Pro-B Natriuret Pep 558 H (0-125) pg/mL Total Protein (6.4-8.2) g/dl Albumin (3.4-5.0) g/dl Globulin gm/dL Albumin/Globulin Ratio (1-2) Urine Color Yellow (Yellow) Urine Appearance Clear (Clear) Urine pH 6.5 (5.0-8.0) Ur Specific Minerva 1.020 (1.005-1.030) Urine Protein Negative (Negative) Urine Glucose (UA) Negative (Negative) Urine Ketones Negative (Negative) Urine Occult Blood 1+ H (Negative) Urine Nitrite Negative (Negative) Urine Bilirubin Negative (Negative) Urine Urobilinogen 0.2 (0.2-1.0) Ur Leukocyte Esterase Negative (Negative) Urine RBC 0-5 (0-5) /hpf Urine WBC 0-5 (0-5) /hpf Ur Squamous Epith Cells 0-5 (0-5) /hpf Urine Bacteria Occasional (FEW) /hpf Urine Mucus Not seen (FEW) /hpf SARS-CoV-2 RNA (JACIEL) (NEGATIVE) 06/18/20 Range/Units 17:45 WBC (3.98-10.04) K/mm3 RBC (3.98-5.22) M/mm3 Hgb (11.2-15.7) gm/dl Hct (34.1-44.9) % MCV (79.4-94.8) fl MCH (25.6-32.2) pg MCHC (32.2-35.5) g/dl RDW Std Deviation (36.4-46.3) fL Plt Count (182-369) K/mm3 MPV (9.4-12.3) fl Neutrophils % (Manual) (40-60) % Band Neutrophils % (0-10) % Lymphocytes % (Manual) (20-40) % Atypical Lymphs % % Monocytes % (Manual) (2-10) % Eosinophils % (Manual) (0.7-5.8) % Basophils % (Manual) (0.1-1.2) Platelet Estimate RBC Morph Comment PT (9.7-12.0) SECONDS INR APTT (21.7-31.4) SECONDS Sodium (136-145) mEq/L Potassium (3.5-5.1) mEq/L Chloride (98-107) mEq/L Carbon Dioxide (21-32) mEq/L Anion Gap (5-15) BUN (7-18) mg/dL Creatinine (0.55-1.02) mg/dL Est Cr Clr Drug Dosing mL/min Estimated GFR (MDRD) (>60) mL/min BUN/Creatinine Ratio (14-18) Glucose (74-106) mg/dL Lactic Acid (0.4-2.0) mmol/L Calcium (8.5-10.1) mg/dL Magnesium (1.8-2.4) mg/dl Total Bilirubin (0.2-1.0) mg/dL AST (15-37) U/L ALT (14-59) U/L Alkaline Phosphatase (46-116) U/L Troponin I (0.00-0.056) ng/mL C-Reactive Protein (<1.0) mg/dL NT-Pro-B Natriuret Pep (0-125) pg/mL Total Protein (6.4-8.2) g/dl Albumin (3.4-5.0) g/dl Globulin gm/dL Albumin/Globulin Ratio (1-2) Urine Color (Yellow) Urine Appearance (Clear) Urine pH (5.0-8.0) Ur Specific Minerva (1.005-1.030) Urine Protein (Negative) Urine Glucose (UA) (Negative) Urine Ketones (Negative) Urine Occult Blood (Negative) Urine Nitrite (Negative) Urine Bilirubin (Negative) Urine Urobilinogen (0.2-1.0) Ur Leukocyte Esterase (Negative) Urine RBC (0-5) /hpf Urine WBC (0-5) /hpf Ur Squamous Epith Cells (0-5) /hpf Urine Bacteria (FEW) /hpf Urine Mucus (FEW) /hpf SARS-CoV-2 RNA (JACIEL) Negative (NEGATIVE) Meds: Medications Generic Name Dose Route Start Last Admin Trade Name Freq PRN Reason Stop Dose Admin Dextrose/Sodium Chloride 1,000 mls @ 999 mls/hr 06/18/20 16:45 06/18/20 17:39 Dextrose 5%-Normal Saline IV 999 mls/hr ASDIRECTED TARUN Administration Vancomycin HCl 1.25 gm/ Sodium 250 mls @ 250 mls/hr 06/18/20 19:37 Chloride IV 06/18/20 20:36 ONETIME ONE Lactated Ringer's 1,000 mls @ 500 mls/hr 06/18/20 19:45 Ringers, Lactated IV ASDIRECTED TARUN Potassium Chloride 10 meq/ 100 mls @ 100 mls/hr 06/18/20 19:45 Premix IV 06/18/20 21:44 Q1H TARUN Discontinued Medications Generic Name Dose Route Start Last Admin Trade Name Freq PRN Reason Stop Dose Admin Acetaminophen 975 mg 06/18/20 16:45 06/18/20 17:39 Acetaminophen 325 Mg Tab PO 06/18/20 16:46 975 mg ONETIME ONE Administration Linezolid 600 mg/ Premix 300 mls @ 300 mls/hr 06/18/20 17:02 06/18/20 18:10 IV 06/18/20 18:01 300 mls/hr ONETIME ONE Administration - Radiology Interpretation Free Text/Narrative:: 44-year-old female presents to the ED with acute onset of fever associate with chills and rigor development around noon today. Yesterday she underwent a endovascular procedure at [facility] in [place] by fryline attendant Dr. Lane for repair of a large patent foramen ovale. Apparently the procedure went very well. She was discharged home this morning and got home shortly before noon hour today. Clinically she is very warm to palpation and has had a few more chills since initial onset of illness. Plan septic work-up to be carried out. Chest x-ray urinalysis and ECG to be done. Tylenol 650 mg given by mouth for fever relief. IV will be D5 normal saline at open at this time since her blood pressure seems to be dropping. One blood pressure was systolic of 85. When she came in her blood pressure was 117 systolic. She will be started on broad- spectrum antibiotic particularly to cover staph aureus and MRSA as soon as blood cultures x2 have been collected. To Zyvox so that it provides coverage against strep pneumonia, staph aureus and MRSA. - Re-Assessments/Exams Free Text/Narrative Re-Assessment/Exam: 06/18/20 17:50 White count is 11.12 differential pending. Hemoglobin is 12.6 with hematocrit of 37.4 MCV 95.2 platelet count 188,000. PT is 11.3 with an INR of 1.06 and a PTT of 25.3. Lactic acid is 1.1. Chest x-ray done portably reveals normal lung zhao and normal-sized heart. There is evidence of a me tallic intracardiac device just to the Rt of the midline of the heart and spine compatible with recent occlusion of a patent foramen ovale. 06/18/20 18:16 Sodium is 139 with a potassium slightly low at 3.4. Chloride 103 with a bicarb of 25. Anion gap is 14.4. BUN is 7 with a creatinine of 0.7 and GFR greater than 60. Glucose 133 with a lactic acid of 1.1. Calcium is 8.3. Magnesium is 1.9. Bilirubin is 0.4 with an AST of 15 and an ALT of 11. Alk phosphatase is 39. Troponin I is minimally elevated at 0.058 with normal our laboratory up to 0.056. C-reactive protein is 3.2 BNP is 558. Total protein 6.7 with albumin fraction of 3.5. Urinalysis shows 1+ occult blood with the micro pending. 06/18/20 19:14 Differential on the white count is 83% neutrophils and no bands cells appreciated. Code status is identified to be DO NOT RESUSCITATE/DO NOT INTUBATE comfort care measures only 06/18/20 19:38 I have spoken with --Department of cardiology at [facility] in [place] who performed her cardiac procedure yesterday at 8 under strict sterile conditions and the patient did receive a dose of cefazolin preoperatively. It therefore appears that she was developing illness prior to this surgical procedure. The plan will therefore be to keep her in our hospital until we get the results of the cultures back. Dr. Mckee would appreciate being appraised of the findings. I will give her a 1250 mg of vancomycin IV following the Zosyn to make sure that we have brought antibiotic biotic spectrum coverage. 06/18/20 20:03 COVID-19 screen is negative. I will therefore place orders for admission to the hospital. I believe the nursing staff believes he will go to the intensive care unit due to staffing. 06/18/20 20:26 COVID-19 screen is negative. However spoke with Dr. Del Toro on- call hospitalist and he will admit the patient to the hospital. I believe she will be going to ICU as an overflow patient. Departure - Departure Time of Disposition: 20:26 Disposition: Admitted As Inpatient 65 Condition: Poor Clinical Impression: Bacteremia, Fever and chills, Blood coagulation disorder, CVA, Cerebrovascular accident, Eyelid twitch, Status post patent foramen ovale closure - Discharge Information *PRESCRIPTION DRUG MONITORING PROGRAM REVIEWED*: Not Applicable *COPY OF PRESCRIPTION DRUG MONITORING REPORT IN PATIENT RANULFO: Not Applicable Referrals: Umesh Montalvo MD [Primary Care Provider] - Forms: ED Department Discharge Sepsis Event Note (ED) - Evaluation Sepsis Screening Result: No Definite Risk - Focused Exam Vital Signs: Vital Signs Temp Temp Pulse Resp BP Pulse Ox 06/18/20 17:39 37.8 C 06/18/20 15:12 37.4 C 100 20 117/81 99 - My Orders Last 24 Hours: My Active Orders 06/18/20 16:45 Dextrose 5%-0.9% NaCl [Dextrose 5%-Normal Saline] 1,000 ml IV ASDIRECTED 06/18/20 16:47 EKG Documentation Completion [RC] STAT Blood Culture x2 Reflex Set [OM.PC] Stat 06/18/20 16:50 CULTURE BLOOD [BC] Stat 06/18/20 17:10 CULTURE BLOOD [BC] Stat 06/18/20 19:37 Vancomycin 1.25 gm Sodium Chloride 0.9% [Normal Saline] 250 ml IV ONETIME 06/18/20 19:45 Lactated Ringers [Ringers, Lactated] 1,000 ml IV ASDIRECTED Potassium Chloride [KCl in Water 10 MEQ/100 ML] 10 meq Premix Bag 1 bag IV Q1H 06/18/20 20:03 Admission Status [Patient Status] [ADT] Routine - Assessment/Plan Last 24 Hours: My Active Orders 06/18/20 16:45 Dextrose 5%-0.9% NaCl [Dextrose 5%-Normal Saline] 1,000 ml IV ASDIRECTED 06/18/20 16:47 EKG Documentation Completion [RC] STAT Blood Culture x2 Reflex Set [OM.PC] Stat 06/18/20 16:50 CULTURE BLOOD [BC] Stat 06/18/20 17:10 CULTURE BLOOD [BC] Stat 06/18/20 19:37 Vancomycin 1.25 gm Sodium Chloride 0.9% [Normal Saline] 250 ml IV ONETIME 06/18/20 19:45 Lactated Ringers [Ringers, Lactated] 1,000 ml IV ASDIRECTED Potassium Chloride [KCl in Water 10 MEQ/100 ML] 10 meq Premix Bag 1 bag IV Q1H 06/18/20 20:03 Admission Status [Patient Status] [ADT] Routine
[2020-06-18] MEDS ORDERED: Dextrose 5%-0.9% NaCl 1,000 ML IV SCH (16:45)
[2020-06-18] MEDS ORDERED: Acetaminophen 325 MG Tab PO ONE (16:45)
[2020-06-18] MEDS ORDERED: Linezolid 600 MG in Premix Bag 1 BAG IV ONE (17:02)
--- NOTE | 2020-06-18 17:22 | CR ---
Chest: Portable view of the chest was obtained. Comparison: No previous chest imaging is available. Heart size and mediastinum are within normal limits. Cardiac device is seen on the right side. Lungs are clear with no acute parenchymal change. Minimal scoliosis is noted. Impression: 1. Incidental findings. Nothing acute is seen. Diagnostic code #2
[2020-06-18] MEDS ORDERED: Lactated Ringers 1,000 ML IV SCH (19:45)
[2020-06-18] MEDS: Potassium Chloride 10 MEQ in Premix Bag 1 BAG IV SCH ×2 (20:51→22:39)
[2020-06-19] MEDS ORDERED: Piperacillin/Tazobactam 4.5 GM in Sodium Chloride 0.9% 100 ML IV ONE (08:00)
[2020-06-19] MEDS: Clopidogrel 75 MG Tab PO SCH (08:18)
[2020-06-19] MEDS: Aspirin 81 MG Tab.Chew PO SCH (08:18)
[2020-06-19] MEDS ORDERED: Docusate Sodium 100 MG Cap PO PRN (08:40)
[2020-06-19] MEDS ORDERED: Temazepam 15 MG Cap PO PRN (08:40)
[2020-06-19] MEDS ORDERED: oxyCODONE 5 MG Tab PO PRN (08:40)
[2020-06-19] MEDS ORDERED: Ondansetron 4 MG Tab.DIS PO PRN (08:40)
--- NOTE | 2020-06-19 08:44 | PCM.HP.2 ---
H&P History of Present Illness - General Date of Service: 06/19/20 Admit Problem/Dx: Admission Diagnosis/Problem Admission Diagnosis/Problem Bacteremia Source of Information: Patient History Limitations: Reports: No Limitations - History of Present Illness Initial Comments - Free Text/Narative: The patient is a 44-year-old lady who had presented to the emergency department after developing chills and rigors prior to presentation. The patient says that she was traveling home from [facility] in [place] after she had undergone an intravascular repair of a patent foramen ovale. The patient had a right to left shunt and as a result of this it was thought that she had suffered a small stroke which had resulted in visual deficits. The patient has partial blindness of both eyes although more notable in her right eye. The patient has reported fatigue and sometimes will have generalized muscle aches. She is also reporting that she has a headache. She is currently taking aspirin and Plavix. Onset of Symptoms: Reports: Gradual Duration of Symptoms: Reports: Hour(s):, Constant Location: Reports: Generalized Quality: Reports: Ache Severity: Mild Improves with: Reports: None Worsens with: Reports: None Context: Reports: Other (Recent endovascular repair of PFO) Associated Symptoms: Reports: Fever/Chills, Headaches Right Head Pain Score (Numeric/FACES): 4 - Related Data Allergies/Adverse Reactions: Allergies Allergy/AdvReac Type Severity Reaction Status Date / Time No Known Allergies Allergy Verified 06/18/20 15:26 Home Medications: Home Meds Aspirin 81 mg PO DAILY 03/31/20 [History] Clopidogrel [Plavix] 75 mg PO DAILY 03/31/20 [History] atorvaSTATin [Lipitor] 20 mg PO BEDTIME 03/31/20 [History] Past Medical History - Past Health History Medical/Surgical History: Denies Medical/Surgical History HEENT History: Reports: Impaired Vision Cardiovascular History: Reports: Heart Murmur, High Cholesterol, Other (See Below) Other Cardiovascular History: pts states she has a "hole" in the back of her heart. 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 Female Surgical History: Reports: Section, Tubal Ligation Social & Family History - Family History Family Medical History: No Pertinent Family History - Tobacco Use Tobacco Use Status *Q: Current Every Day Tobacco User Years of Tobacco use: 19 Packs/Tins Daily: 1 Used Tobacco, but Quit: No Tobacco Use Comment: pt does not want a nicotine patch Second Hand Smoke Exposure: No - Caffeine Use Caffeine Use: Reports: Coffee - Recreational Drug Use Recreational Drug Use: No - Living Situation & Occupation Living situation: Reports: Single Occupation: Unemployed H&P Review of Systems - Review of Systems: Review Of Systems: See Below General: Reports: Fever, Chills, Malaise HEENT: Reports: Visual Changes (Chronic) Pulmonary: Reports: No Symptoms Cardiovascular: Reports: Other Gastrointestinal: Reports: Nausea Genitourinary: Reports: No Symptoms Musculoskeletal: Reports: No Symptoms Skin: Reports: No Symptoms Psychiatric: Reports: No Symptoms Neurological: Reports: Headache, Pre-Existing Deficit Hematologic/Lymphatic: Reports: No Symptoms Immunologic: Reports: No Symptoms Exam - Exam Exam: See Below - Vital Signs Vital Signs: Last Vital Signs Temp 37.3 C 06/19/20 08:01 Pulse 91 06/19/20 08:01 Resp 18 06/19/20 08:01 BP 97/66 06/19/20 08:01 Pulse Ox 98 06/19/20 08:01 Weight: 55.877 kg - Exam Quality Assessment: No: Supplemental Oxygen General: Alert, Oriented, Cooperative HEENT: Conjunctiva Clear, EACs Clear, EOMI, Hearing Intact, Mucosa Moist & Spur, Posterior Pharynx Clear, PERRLA Neck: Supple, Trachea Midline Lungs: Clear to Auscultation, Normal Respiratory Effort Cardiovascular: Regular Rate, Regular Rhythm GI/Abdominal Exam: Normal Bowel Sounds, Soft, Non-Tender, No Distention (Female) Exam: Deferred Rectal (Female) Exam: Deferred Back Exam: Normal Inspection, Full Range of Motion Extremities: Normal Inspection, No Pedal Edema Skin: Warm, Dry, Intact Neurological: Cranial Nerves Intact, Normal Gait Neuro Extensive - Mental Status: Alert, Oriented x3 Neuro Extensive - Motor, Sensory, Reflexes: CN II-XII Intact Psychiatric: Alert, Normal Affect, Normal Mood - Patient Data Lab Results Last 24 hrs: Laboratory Results - last 24 hr 06/18/20 06/18/20 06/18/20 Range/Units 16:50 16:50 16:50 WBC 11.12 H (3.98-10.04) K/mm3 RBC 3.93 L (3.98-5.22) M/mm3 Hgb 12.6 D (11.2-15.7) gm/dl Hct 37.4 (34.1-44.9) % MCV 95.2 H (79.4-94.8) fl MCH 32.1 (25.6-32.2) pg MCHC 33.7 (32.2-35.5) g/dl RDW Std Deviation 41.9 (36.4-46.3) fL Plt Count 188 D (182-369) K/mm3 MPV 10.5 (9.4-12.3) fl Neut % (Auto) (34.0-71.1) % Lymph % (Auto) (19.3-51.7) % Hawkins % (Auto) (4.7-12.5) % Eos % (Auto) (0.7-5.8) Baso % (Auto) (0.1-1.2) % Neut # (Auto) (1.56-6.13) K/mm3 Lymph # (Auto) (1.18-3.74) K/mm3 Hawkins # (Auto) (0.24-0.36) K/mm3 Eos # (Auto) (0.04-0.36) K/mm3 Baso # (Auto) (0.01-0.08) K/mm3 Neutrophils % (Manual) 83 H (40-60) % Band Neutrophils % 0 (0-10) % Lymphocytes % (Manual) 9 L (20-40) % Atypical Lymphs % 0 % Monocytes % (Manual) 8 (2-10) % Eosinophils % (Manual) 0 L (0.7-5.8) % Basophils % (Manual) 0 L (0.1-1.2) Platelet Estimate Adequate RBC Morph Comment Normal PT 11.3 (9.7-12.0) SECONDS INR 1.06 APTT 25.3 (21.7-31.4) SECONDS Sodium 139 (136-145) mEq/L Potassium 3.4 L (3.5-5.1) mEq/L Chloride 103 (98-107) mEq/L Carbon Dioxide 25 (21-32) mEq/L Anion Gap 14.4 (5-15) BUN 7 (7-18) mg/dL Creatinine 0.7 (0.55-1.02) mg/dL Est Cr Clr Drug Dosing 76.58 mL/min Estimated GFR (MDRD) > 60 (>60) mL/min BUN/Creatinine Ratio 10.0 L (14-18) Glucose 133 H (74-106) mg/dL Lactic Acid (0.4-2.0) mmol/L Calcium 8.3 L (8.5-10.1) mg/dL Magnesium 1.9 (1.8-2.4) mg/dl Total Bilirubin 0.4 (0.2-1.0) mg/dL AST 15 (15-37) U/L ALT 11 L (14-59) U/L Alkaline Phosphatase 39 L (46-116) U/L Troponin I 0.058 H* (0.00-0.056) ng/mL C-Reactive Protein 3.2 H* (<1.0) mg/dL NT-Pro-B Natriuret Pep (0-125) pg/mL Total Protein 6.7 (6.4-8.2) g/dl Albumin 3.5 (3.4-5.0) g/dl Globulin 3.2 gm/dL Albumin/Globulin Ratio 1.1 (1-2) Urine Color (Yellow) Urine Appearance (Clear) Urine pH (5.0-8.0) Ur Specific [place] (1.005-1.030) Urine Protein (Negative) Urine Glucose (UA) (Negative) Urine Ketones (Negative) Urine Occult Blood (Negative) Urine Nitrite (Negative) Urine Bilirubin (Negative) Urine Urobilinogen (0.2-1.0) Ur Leukocyte Esterase (Negative) Urine RBC (0-5) /hpf Urine WBC (0-5) /hpf Ur Squamous Epith Cells (0-5) /hpf Urine Bacteria (FEW) /hpf Urine Mucus (FEW) /hpf SARS-CoV-2 RNA (JACIEL) (NEGATIVE) 06/18/20 06/18/20 06/18/20 Range/Units 16:50 16:50 17:45 WBC (3.98-10.04) K/mm3 RBC (3.98-5.22) M/mm3 Hgb (11.2-15.7) gm/dl Hct (34.1-44.9) % MCV (79.4-94.8) fl MCH (25.6-32.2) pg MCHC (32.2-35.5) g/dl RDW Std Deviation (36.4-46.3) fL Plt Count (182-369) K/mm3 MPV (9.4-12.3) fl Neut % (Auto) (34.0-71.1) % Lymph % (Auto) (19.3-51.7) % Hawkins % (Auto) (4.7-12.5) % Eos % (Auto) (0.7-5.8) Baso % (Auto) (0.1-1.2) % Neut # (Auto) (1.56-6.13) K/mm3 Lymph # (Auto) (1.18-3.74) K/mm3 Hawkins # (Auto) (0.24-0.36) K/mm3 Eos # (Auto) (0.04-0.36) K/mm3 Baso # (Auto) (0.01-0.08) K/mm3 Neutrophils % (Manual) (40-60) % Band Neutrophils % (0-10) % Lymphocytes % (Manual) (20-40) % Atypical Lymphs % % Monocytes % (Manual) (2-10) % Eosinophils % (Manual) (0.7-5.8) % Basophils % (Manual) (0.1-1.2) Platelet Estimate RBC Morph Comment PT (9.7-12.0) SECONDS INR APTT (21.7-31.4) SECONDS Sodium (136-145) mEq/L Potassium (3.5-5.1) mEq/L Chloride (98-107) mEq/L Carbon Dioxide (21-32) mEq/L Anion Gap (5-15) BUN (7-18) mg/dL Creatinine (0.55-1.02) mg/dL Est Cr Clr Drug Dosing mL/min Estimated GFR (MDRD) (>60) mL/min BUN/Creatinine Ratio (14-18) Glucose (74-106) mg/dL Lactic Acid 1.1 (0.4-2.0) mmol/L Calcium (8.5-10.1) mg/dL Magnesium (1.8-2.4) mg/dl Total Bilirubin (0.2-1.0) mg/dL AST (15-37) U/L ALT (14-59) U/L Alkaline Phosphatase (46-116) U/L Troponin I (0.00-0.056) ng/mL C-Reactive Protein (<1.0) mg/dL NT-Pro-B Natriuret Pep 558 H (0-125) pg/mL Total Protein (6.4-8.2) g/dl Albumin (3.4-5.0) g/dl Globulin gm/dL Albumin/Globulin Ratio (1-2) Urine Color Yellow (Yellow) Urine Appearance Clear (Clear) Urine pH 6.5 (5.0-8.0) Ur Specific [place] 1.020 (1.005-1.030) Urine Protein Negative (Negative) Urine Glucose (UA) Negative (Negative) Urine Ketones Negative (Negative) Urine Occult Blood 1+ H (Negative) Urine Nitrite Negative (Negative) Urine Bilirubin Negative (Negative) Urine Urobilinogen 0.2 (0.2-1.0) Ur Leukocyte Esterase Negative (Negative) Urine RBC 0-5 (0-5) /hpf Urine WBC 0-5 (0-5) /hpf Ur Squamous Epith Cells 0-5 (0-5) /hpf Urine Bacteria Occasional (FEW) /hpf Urine Mucus Not seen (FEW) /hpf SARS-CoV-2 RNA (JACIEL) (NEGATIVE) 06/18/20 06/19/20 06/19/20 Range/Units 17:45 07:21 07:21 WBC 13.08 H (3.98-10.04) K/mm3 RBC 3.52 L (3.98-5.22) M/mm3 Hgb 11.4 (11.2-15.7) gm/dl Hct 33.9 L (34.1-44.9) % MCV 96.3 H (79.4-94.8) fl MCH 32.4 H (25.6-32.2) pg MCHC 33.6 (32.2-35.5) g/dl RDW Std Deviation 42.4 (36.4-46.3) fL Plt Count 162 L (182-369) K/mm3 MPV 10.5 (9.4-12.3) fl Neut % (Auto) 75.3 H (34.0-71.1) % Lymph % (Auto) 13.1 L (19.3-51.7) % Hawkins % (Auto) 10.9 (4.7-12.5) % Eos % (Auto) 0.3 L (0.7-5.8) Baso % (Auto) 0.2 (0.1-1.2) % Neut # (Auto) 9.86 H (1.56-6.13) K/mm3 Lymph # (Auto) 1.72 (1.18-3.74) K/mm3 Hawkins # (Auto) 1.42 H (0.24-0.36) K/mm3 Eos # (Auto) 0.04 (0.04-0.36) K/mm3 Baso # (Auto) 0.02 (0.01-0.08) K/mm3 Neutrophils % (Manual) (40-60) % Band Neutrophils % (0-10) % Lymphocytes % (Manual) (20-40) % Atypical Lymphs % % Monocytes % (Manual) (2-10) % Eosinophils % (Manual) (0.7-5.8) % Basophils % (Manual) (0.1-1.2) Platelet Estimate RBC Morph Comment PT (9.7-12.0) SECONDS INR APTT (21.7-31.4) SECONDS Sodium 139 (136-145) mEq/L Potassium 3.7 (3.5-5.1) mEq/L Chloride 106 (98-107) mEq/L Carbon Dioxide 23 (21-32) mEq/L Anion Gap 13.7 (5-15) BUN 7 (7-18) mg/dL Creatinine 0.7 (0.55-1.02) mg/dL Est Cr Clr Drug Dosing 76.58 mL/min Estimated GFR (MDRD) > 60 (>60) mL/min BUN/Creatinine Ratio 10.0 L (14-18) Glucose 119 H (74-106) mg/dL Lactic Acid (0.4-2.0) mmol/L Calcium 7.9 L (8.5-10.1) mg/dL Magnesium 1.7 L (1.8-2.4) mg/dl Total Bilirubin 0.5 (0.2-1.0) mg/dL AST 16 (15-37) U/L ALT 10 L (14-59) U/L Alkaline Phosphatase 30 L (46-116) U/L Troponin I (0.00-0.056) ng/mL C-Reactive Protein 6.9 H* (<1.0) mg/dL NT-Pro-B Natriuret Pep (0-125) pg/mL Total Protein 5.9 L (6.4-8.2) g/dl Albumin 2.9 L (3.4-5.0) g/dl Globulin 3.0 gm/dL Albumin/Globulin Ratio 1.0 (1-2) Urine Color (Yellow) Urine Appearance (Clear) Urine pH (5.0-8.0) Ur Specific [place] (1.005-1.030) Urine Protein (Negative) Urine Glucose (UA) (Negative) Urine Ketones (Negative) Urine Occult Blood (Negative) Urine Nitrite (Negative) Urine Bilirubin (Negative) Urine Urobilinogen (0.2-1.0) Ur Leukocyte Esterase (Negative) Urine RBC (0-5) /hpf Urine WBC (0-5) /hpf Ur Squamous Epith Cells (0-5) /hpf Urine Bacteria (FEW) /hpf Urine Mucus (FEW) /hpf SARS-CoV-2 RNA (JACIEL) Negative (NEGATIVE) Result Diagrams: 06/19/20 07:21 06/19/20 07:21 Sepsis Event Note - Evaluation Sepsis Screening Result: No Definite Risk - Focused Exam Vital Signs: Vital Signs Temp Pulse Pulse Resp BP Pulse Ox 06/19/20 08:01 37.3 C 91 18 97/66 98 06/19/20 04:00 37.2 C 75 19 88/59 L 97 06/19/20 02:00 37.7 C 06/18/20 23:57 37.6 C 06/18/20 22:19 36.8 C 71 18 83/63 L 99 04/15/21 20:45 37.2 C 75 20 89/64 L 100 *Q Meaningful Use (ADM) - VTE *Q VTE Pharmacological Contraindications *Q: Risk of Bleeding - Problem List (1) Bacteremia SNOMED Code(s): 3582316 ICD Code: R78.81 - BACTEREMIA Status: Acute Priority: High Current Visit: Yes (2) Blood coagulation disorder SNOMED Code(s): 88427073 ICD Code: D68.9 - COAGULATION DEFECT, UNSPECIFIED Status: Acute Priority: High Current Visit: Yes (3) CVA, Cerebrovascular accident SNOMED Code(s): 115469255 ICD Code: I63.9 - CEREBRAL INFARCTION, UNSPECIFIED Status: Chronic Priority: Low Current Visit: Yes Problem Details: Old, visual deficits Problem List Initiated/Reviewed/Updated: Yes Orders Last 24hrs: Active Orders 24 hr Category Date Time Status Patient Status [ADT] Routine ADT 06/19/20 08:14 Active Antiembolic Devices [RC] PER UNIT ROUTINE Care 06/19/20 08:43 Ordered Cardiac Monitoring [RC] CONTINUOUS Care 06/19/20 08:41 Ordered Oxygen Therapy [RC] PRN Care 06/19/20 08:41 Ordered Up ad Martha [RC] ASDIRECTED Care 06/19/20 08:40 Ordered VTE/DVT Education [RC] PER UNIT ROUTINE Care 06/19/20 08:41 Ordered Vital Signs [RC] Q4H Care 06/19/20 08:41 Ordered Heart Healthy Diet [DIET] Diet 06/19/20 Lunch Active C-REACTIVE PROTEIN [CHEM] AM Lab 06/20/20 05:11 Ordered CBC WITH AUTO DIFF [HEME] AM Lab 06/20/20 05:11 Ordered COMPREHENSIVE METABOLIC PN,CMP [CHEM] AM Lab 06/20/20 05:11 Ordered CULTURE BLOOD [BC] Stat Lab 06/18/20 16:50 Received CULTURE BLOOD [BC] Stat Lab 06/18/20 17:10 Received MAGNESIUM [CHEM] AM Lab 06/20/20 05:11 Ordered Aspirin Med 06/19/20 09:00 Active 81 mg PO DAILY Clopidogrel [Plavix] Med 06/19/20 09:00 Active 75 mg PO DAILY Dextrose 5%-0.9% NaCl [Dextrose 5%-Normal Saline] 1,000 Med 06/18/20 16:45 Active ml IV ASDIRECTED Docusate Sodium [Colace] Med 06/19/20 08:40 Ordered 100 mg PO BID PRN Lactated Ringers [Ringers, Lactated] 1,000 ml Med 06/18/20 19:45 Active IV ASDIRECTED Magnesium Sulfate/Water [Magnesium Sulfate in Water 2 Med 06/19/20 09:00 Active GM/50 ML] 2 gm in 50 ml IV ONETIME Ondansetron [Zofran ODT] Med 06/19/20 08:40 Ordered 4 mg PO Q4H PRN Piperacillin/Tazobactam [Piperacil-Tazobact] 4.5 gm Med 06/19/20 16:00 Active Sodium Chloride 0.9% [Normal Saline] 100 ml IV Q8H Temazepam [Restoril] Med 06/19/20 08:40 Ordered 15 mg PO BEDTIME PRN atorvaSTATin [Lipitor] Med 06/19/20 21:00 Active 20 mg PO BEDTIME oxyCODONE Med 06/19/20 08:40 Ordered 5 mg PO Q4H PRN Blood Culture x2 Reflex Set [OM.PC] Stat Ot 06/18/20 16:47 Ordered Sequential Compression Device [OM.PC] Per Unit Routine Oth 06/19/20 08:42 Ordered VTE Pharmacological Contraindications [AST] Per Unit Oth 06/19/20 08:40 Ordered Routine Code Status [Resuscitation Status] Routine Resus Stat 06/19/20 07:00 Ordered Medication Orders Aspirin (Aspirin 81 Mg Tab.Chew) 81 mg PO DAILY [facility] Last Admin: 06/19/20 08:18 Dose: 81 mg Documented by: SHOSHANA Atorvastatin Calcium (Atorvastatin 20 Mg Tab) 20 mg PO BEDTIME [facility] Clopidogrel Bisulfate (Clopidogrel 75 Mg Tab) 75 mg PO DAILY [facility] Last Admin: 06/19/20 08:18 Dose: 75 mg Documented by: SHOSHANA Docusate Sodium (Docusate Sodium 100 Mg Cap) 100 mg PO BID PRN PRN Reason: Constipation Dextrose/Sodium Chloride (Dextrose 5%-Normal Saline) 1,000 mls @ 999 mls/hr IV ASDIRECTED [facility] Last Admin: 06/18/20 17:39 Dose: 999 mls/hr Documented by: SWETHA Lactated Ringer's (Ringers, Lactated) 1,000 mls @ 500 mls/hr IV ASDIRECTED [facility] Last Admin: 06/18/20 21:12 Dose: 500 mls/hr Documented by: [id number] Piperacillin Sod/Tazobactam (Sod 4.5 gm/ Sodium Chloride) 100 mls @ 25 mls/hr IV Q8H TARUN Magnesium Sulfate (Magnesium Sulfate In Water 2 Gm/50 Ml) 2 gm in 50 mls @ 25 mls/hr IV ONETIME ONE Stop: 06/19/20 10:59 Ondansetron HCl (Ondansetron 4 Mg Tab.Dis) 4 mg PO Q4H PRN PRN Reason: nausea, able to take PO Oxycodone HCl (Oxycodone 5 Mg Tab) 5 mg PO Q4H PRN PRN Reason: Pain (moderate 4-6) Temazepam (Temazepam 15 Mg Cap) 15 mg PO BEDTIME PRN PRN Reason: Sleep Assessment/Plan Comment:: The patient is a 44-year-old lady who was admitted primarily out of concern for possible infection secondary to her recent PFO repair. The patient did have chills and rigors although this was not associated with a fever. The patient also was not noted to have a specific source of infection. She did have elevations of her CRP. She also had elevations of her troponins which can be explained secondary to the PFO repair. The PFO was repaired intravascularly on June 17, 2020. Blood cultures have been obtained. Patient has been started on Zosyn out of concern for problems associated with the PFO. A report had indicated that the patient had IV antibiotics prior to the surgery. Patient had low magnesium and is also has been in replaced. Because of the patient's recent surgery she will be kept on telemetry. The patient will have a regular diet as tolerated. Repeat laboratory studies have been ordered for the morning. She is also have regular diet as tolerated. The patient has been encouraged to ambulate. Because the patient is currently taking Plavix and aspirin I recommended the patient have SCDs for DVT prophylaxis. Patient should be appropriate for discharge in 1 to 2 days. - Mortality Measure Prognosis:: Good
[2020-06-19] MEDS ORDERED: Magnesium Sulfate/Water 2 GM/50 ML BAG IV ONE (09:00)
[2020-06-19] MEDS ORDERED: LORazepam 2 MG/ML SDV IVPUSH ONE (10:30)
[2020-06-19] MEDS: Piperacillin/Tazobactam 4.5 GM in Sodium Chloride 0.9% 100 ML IV SCH (15:21)
[2020-06-19] MEDS ORDERED: LORazepam 2 MG/ML SDV IVPUSH PRN (16:13)
[2020-06-19] MEDS: Acetaminophen 325 MG Tab PO PRN (16:25)
[2020-06-19] MEDS ORDERED: Sodium Chloride 0.9% 500 ML IV ONE (20:34)
[2020-06-19] MEDS: atorvaSTATin 20 MG Tab PO SCH (20:39)
[2020-06-20] MEDS: Piperacillin/Tazobactam 4.5 GM in Sodium Chloride 0.9% 100 ML IV SCH ×4 (01:10→23:51)
[2020-06-20] MEDS: Clopidogrel 75 MG Tab PO SCH (08:23)
[2020-06-20] MEDS: Aspirin 81 MG Tab.Chew PO SCH (08:24)
[2020-06-20] MEDS: Acetaminophen 325 MG Tab PO PRN (09:28)
[2020-06-20] MEDS: Potassium Chloride 20 MEQ Tab.ER PO SCH ×2 (09:29→20:11)
--- NOTE | 2020-06-20 09:42 | PCM.PN ---
- General Info Date of Service: 06/20/20 Admission Dx/Problem (Free Text): Admission Diagnosis/Problem Admission Diagnosis/Problem Bacteremia Functional Status: Reports: Pain Controlled, Tolerating Diet, Ambulating, Urinating. Denies: New Symptoms - Review of Systems General: Reports: No Symptoms. Denies: Fever, Weakness, Fatigue, Malaise, Chills HEENT: Reports: No Symptoms. Denies: Headaches, Visual Changes Pulmonary: Reports: No Symptoms. Denies: Shortness of Breath, Pleuritic Chest Pain, Cough, Sputum, Wheezing Cardiovascular: Reports: No Symptoms. Denies: Chest Pain, Palpitations, Dyspnea on Exertion, Edema, Lightheadedness Gastrointestinal: Reports: No Symptoms. Denies: Constipation, Diarrhea, Nausea, Vomiting Genitourinary: Reports: No Symptoms. Denies: Pain Musculoskeletal: Reports: No Symptoms Skin: Reports: No Symptoms. Denies: Cyanosis Neurological: Reports: Pre-Existing Deficit (Prior CVA ). Denies: Confusion, Difficulty Walking, Gait Disturbance Psychiatric: Reports: No Symptoms - Patient Data Vitals - Most Recent: Last Vital Signs Temp 98.4 F 06/20/20 07:26 Pulse 79 06/20/20 07:26 Resp 16 06/20/20 05:42 BP 90/59 L 06/20/20 07:26 Pulse Ox 100 06/20/20 07:26 Weight - Most Recent: 122 lb 4.8 oz I&O - Last 24 Hours: Intake & Output 06/19/20 06/20/20 06/20/20 22:59 06:59 14:59 Intake Total 1390 900 Output Total 600 Balance 1390 300 Lab Results Last 24 Hours: Laboratory Results - last 24 hr 06/20/20 06/20/20 Range/Units 04:55 04:55 WBC 13.55 H (3.98-10.04) K/mm3 RBC 3.43 L (3.98-5.22) M/mm3 Hgb 11.0 L (11.2-15.7) gm/dl Hct 33.5 L (34.1-44.9) % MCV 97.7 H (79.4-94.8) fl MCH 32.1 (25.6-32.2) pg MCHC 32.8 (32.2-35.5) g/dl RDW Std Deviation 43.0 (36.4-46.3) fL Plt Count 150 L (182-369) K/mm3 MPV 10.7 (9.4-12.3) fl Neut % (Auto) 73.9 H (34.0-71.1) % Lymph % (Auto) 13.9 L (19.3-51.7) % [place] % (Auto) 10.9 (4.7-12.5) % Eos % (Auto) 1.0 (0.7-5.8) Baso % (Auto) 0.1 (0.1-1.2) % Neut # (Auto) 9.99 H (1.56-6.13) K/mm3 Lymph # (Auto) 1.89 (1.18-3.74) K/mm3 [place] # (Auto) 1.48 H (0.24-0.36) K/mm3 Eos # (Auto) 0.14 (0.04-0.36) K/mm3 Baso # (Auto) 0.02 (0.01-0.08) K/mm3 Sodium 142 (136-145) mEq/L Potassium 3.5 (3.5-5.1) mEq/L Chloride 110 H (98-107) mEq/L Carbon Dioxide 23 (21-32) mEq/L Anion Gap 12.5 (5-15) BUN 9 (7-18) mg/dL Creatinine 0.7 (0.55-1.02) mg/dL Est Cr Clr Drug Dosing 76.58 mL/min Estimated GFR (MDRD) > 60 (>60) mL/min BUN/Creatinine Ratio 12.9 L (14-18) Glucose 95 (74-106) mg/dL Calcium 8.3 L (8.5-10.1) mg/dL Magnesium 2.0 (1.8-2.4) mg/dl Total Bilirubin 0.8 (0.2-1.0) mg/dL AST 12 L (15-37) U/L ALT 9 L (14-59) U/L Alkaline Phosphatase 35 L (46-116) U/L C-Reactive Protein 12.4 H* (<1.0) mg/dL Total Protein 5.9 L (6.4-8.2) g/dl Albumin 2.7 L (3.4-5.0) g/dl Globulin 3.2 gm/dL Albumin/Globulin Ratio 0.8 L (1-2) [facility] Results Last 24 Hours: Microbiology 06/18/20 17:10 Aerobic Blood Culture - Preliminary Blood - Venous - Lab Draw NO GROWTH AFTER 1 DAY Anaerobic Blood Culture - Preliminary NO GROWTH AFTER 1 DAY 06/18/20 16:50 Aerobic Blood Culture - Preliminary Blood - Venous NO GROWTH AFTER 1 DAY Anaerobic Blood Culture - Preliminary NO GROWTH AFTER 1 DAY Med Orders - Current: Current Medications Acetaminophen (Acetaminophen 325 Mg Tab) 650 mg PO Q6H PRN PRN Reason: Fever Last Admin: 06/20/20 09:28 Dose: 650 mg Documented by: Aspirin (Aspirin 81 Mg Tab.Chew) 81 mg PO DAILY [facility] Last Admin: 06/20/20 08:24 Dose: 81 mg Documented by: Atorvastatin Calcium (Atorvastatin 20 Mg Tab) 20 mg PO BEDTIME [facility] Last Admin: 06/19/20 20:39 Dose: 20 mg Documented by: Clopidogrel Bisulfate (Clopidogrel 75 Mg Tab) 75 mg PO DAILY [facility] Last Admin: 06/20/20 08:23 Dose: 75 mg Documented by: Docusate Sodium (Docusate Sodium 100 Mg Cap) 100 mg PO BID PRN PRN Reason: Constipation Piperacillin Sod/Tazobactam (Sod 4.5 gm/ Sodium Chloride) 100 mls @ 25 mls/hr IV Q8H [facility] Last Admin: 06/20/20 08:23 Dose: 25 mls/hr Documented by: Lorazepam (Lorazepam 2 Mg/Ml Sdv) 0.5 mg IVPUSH Q4H PRN PRN Reason: Rigors Last Admin: 06/19/20 16:25 Dose: 0.5 mg Documented by: Ondansetron HCl (Ondansetron 4 Mg Tab.Dis) 4 mg PO Q4H PRN PRN Reason: nausea, able to take PO Oxycodone HCl (Oxycodone 5 Mg Tab) 5 mg PO Q4H PRN PRN Reason: Pain (moderate 4-6) Last Admin: 06/19/20 16:27 Dose: 5 mg Documented by: Potassium Chloride (Potassium Chloride 20 Meq Tab.Er) 40 meq PO BID [facility] Stop: 06/20/20 21:01 Last Admin: 06/20/20 09:29 Dose: 40 meq Documented by: Temazepam (Temazepam 15 Mg Cap) 15 mg PO BEDTIME PRN PRN Reason: Sleep Discontinued Medications Acetaminophen (Acetaminophen 325 Mg Tab) 975 mg PO ONETIME ONE Stop: 06/18/20 16:46 Last Admin: 06/18/20 17:39 Dose: 975 mg Documented by: Dextrose/Sodium Chloride (Dextrose 5%-Normal Saline) 1,000 mls @ 999 mls/hr IV ASDIRECTED [facility] Last Admin: 06/18/20 17:39 Dose: 999 mls/hr Documented by: Linezolid 600 mg/ Premix 300 mls @ 300 mls/hr IV ONETIME ONE Stop: 06/18/20 18:01 Last Admin: 06/18/20 18:10 Dose: 300 mls/hr Documented by: Vancomycin HCl 1.25 gm/ Sodium (Chloride) 250 mls @ 250 mls/hr IV ONETIME ONE Stop: 06/18/20 20:36 Last Admin: 06/18/20 20:51 Dose: 250 mls/hr Documented by: Lactated Ringer's (Ringers, Lactated) 1,000 mls [facility] Last Admin: 06/18/20 21:12 Dose: 500 mls/hr Documented by: Potassium Chloride 10 meq/ (Premix) 100 mls @ 100 mls/hr IV Q1H [facility] Stop: 06/18/20 21:44 Last Admin: 06/18/20 22:39 Dose: 100 mls/hr Documented by: Piperacillin Sod/Tazobactam (Sod 4.5 gm/ Sodium Chloride) 100 mls @ 200 mls/hr IV ONETIME ONE Stop: 06/19/20 08:29 Last Admin: 06/19/20 08:18 Dose: 200 mls/hr Documented by: Magnesium Sulfate (Magnesium Sulfate In Water 2 Gm/50 Ml) 2 gm in 50 mls @ 25 mls/hr IV ONETIME ONE Stop: 06/19/20 10:59 Last Admin: 06/19/20 08:56 Dose: 25 mls/hr Documented by: Sodium Chloride (Normal Saline) 500 mls @ 999 mls/hr IV ONETIME ONE Stop: 06/19/20 21:04 Last Admin: 06/19/20 21:09 Dose: 999 mls/hr Documented by: Lorazepam (Lorazepam 2 Mg/Ml Sdv) 0.5 mg IVPUSH ONETIME ONE Stop: 06/19/20 10:31 Last Admin: 06/19/20 10:30 Dose: 0.5 mg Documented by: - Exam Quality Assessment: DVT Prophylaxis. No: Supplemental Oxygen, Urine Catheter General: Alert, Oriented, Cooperative, No Acute Distress HEENT: Pupils Equal, Pupils Reactive, Mucous Membr. Moist/[place] Neck: Supple, Trachea Midline Lungs: Clear to Auscultation, Normal Respiratory Effort Cardiovascular: Regular Rate, Regular Rhythm GI/Abdominal Exam: Normal Bowel Sounds, Soft, Non-Tender, No Distention (Female) Exam: Deferred Back Exam: Normal Inspection, Full Range of Motion Extremities: Normal Inspection, Normal Range of Motion, Non-Tender, No Pedal Edema, Normal Capillary Refill Peripheral Pulses: 2+: Radial (L), Radial (R), Dorsalis Pedis (L), Dorsalis Pedis (R) Skin: Warm, Dry, Intact Wound/Incisions: Healing Well, No Drainage, Other (Wound to right groin from cardiac catheterization procedure. Healing well with no signs of infection.) Neurological: No New Focal Deficit Psy/Mental Status: Alert, Normal Affect, Normal Mood - Patient Data Lab Results Last 24 hrs: Laboratory Results - last 24 hr 06/20/20 06/20/20 Range/Units 04:55 04:55 WBC 13.55 H (3.98-10.04) K/mm3 RBC 3.43 L (3.98-5.22) M/mm3 Hgb 11.0 L (11.2-15.7) gm/dl Hct 33.5 L (34.1-44.9) % MCV 97.7 H (79.4-94.8) fl MCH 32.1 (25.6-32.2) pg MCHC 32.8 (32.2-35.5) g/dl RDW Std Deviation 43.0 (36.4-46.3) fL Plt Count 150 L (182-369) K/mm3 MPV 10.7 (9.4-12.3) fl Neut % (Auto) 73.9 H (34.0-71.1) % Lymph % (Auto) 13.9 L (19.3-51.7) % [place] % (Auto) 10.9 (4.7-12.5) % Eos % (Auto) 1.0 (0.7-5.8) Baso % (Auto) 0.1 (0.1-1.2) % Neut # (Auto) 9.99 H (1.56-6.13) K/mm3 Lymph # (Auto) 1.89 (1.18-3.74) K/mm3 [place] # (Auto) 1.48 H (0.24-0.36) K/mm3 Eos # (Auto) 0.14 (0.04-0.36) K/mm3 Baso # (Auto) 0.02 (0.01-0.08) K/mm3 Sodium 142 (136-145) mEq/L Potassium 3.5 (3.5-5.1) mEq/L Chloride 110 H (98-107) mEq/L Carbon Dioxide 23 (21-32) mEq/L Anion Gap 12.5 (5-15) BUN 9 (7-18) mg/dL Creatinine 0.7 (0.55-1.02) mg/dL Est Cr Clr Drug Dosing 76.58 mL/min Estimated GFR (MDRD) > 60 (>60) mL/min BUN/Creatinine Ratio 12.9 L (14-18) Glucose 95 (74-106) mg/dL Calcium 8.3 L (8.5-10.1) mg/dL Magnesium 2.0 (1.8-2.4) mg/dl Total Bilirubin 0.8 (0.2-1.0) mg/dL AST 12 L (15-37) U/L ALT 9 L (14-59) U/L Alkaline Phosphatase 35 L (46-116) U/L C-Reactive Protein 12.4 H* (<1.0) mg/dL Total Protein 5.9 L (6.4-8.2) g/dl Albumin 2.7 L (3.4-5.0) g/dl Globulin 3.2 gm/dL Albumin/Globulin Ratio 0.8 L (1-2) Result Diagrams: 06/20/20 04:55 06/20/20 04:55 [facility] Results Last 24 hrs: Microbiology 06/18/20 17:10 Aerobic Blood Culture - Preliminary Blood - Venous - Lab Draw NO GROWTH AFTER 1 DAY Anaerobic Blood Culture - Preliminary NO GROWTH AFTER 1 DAY 06/18/20 16:50 Aerobic Blood Culture - Preliminary Blood - Venous NO GROWTH AFTER 1 DAY Anaerobic Blood Culture - Preliminary NO GROWTH AFTER 1 DAY Sepsis Event Note - Evaluation Sepsis Screening Result: No Definite Risk - Focused Exam Vital Signs: Vital Signs Temp Pulse Resp BP Pulse Ox 06/20/20 07:26 98.4 F 79 90/59 L 100 06/20/20 05:42 98.4 F 72 16 91/74 97 06/20/20 01:08 98.4 F 72 18 86/66 L 96 06/19/20 21:46 86/62 L - Problem List & Annotations (1) Blood coagulation disorder SNOMED Code(s): 01526823 Code(s): D68.9 - COAGULATION DEFECT, UNSPECIFIED Status: Chronic Priority: Medium Current Visit: Yes (2) Fever and chills SNOMED Code(s): 655531604 Code(s): R50.9 - FEVER, UNSPECIFIED Status: Resolved Priority: High Current Visit: Yes (3) Status post patent foramen ovale closure SNOMED Code(s): 435068432, 786751326, 644699317 Code(s): Z87.74 - PERSONAL HISTORY OF CONGENITAL MALFORM OF HEART AND CIRC SYS Status: Acute Priority: High Current Visit: Yes (4) CVA, Cerebrovascular accident SNOMED Code(s): 255475154 Code(s): I63.9 - CEREBRAL INFARCTION, UNSPECIFIED Status: Chronic Priority: Low Current Visit: Yes Annotation/Comment:: Old, visual deficits (5) Elevated troponin SNOMED Code(s): 381737966, 318044184, 806104317 Code(s): R77.8 - OTHER SPECIFIED ABNORMALITIES OF PLASMA PROTEINS Status: Acute Priority: Medium Current Visit: Yes (6) Leukocytosis SNOMED Code(s): 929847809, 834212489 Code(s): D72.829 - ELEVATED WHITE BLOOD CELL COUNT, UNSPECIFIED Status: Acute Priority: High Current Visit: Yes Qualifiers: Leukocytosis type: unspecified Qualified Code(s): D72.829 - Elevated white blood cell count, unspecified (7) Elevated C-reactive protein (CRP) SNOMED Code(s): 130363746613609 Code(s): R79.82 - ELEVATED C-REACTIVE PROTEIN (CRP) Status: Acute Priority: High Current Visit: Yes (8) Hypokalemia SNOMED Code(s): 06772998 Code(s): E87.6 - HYPOKALEMIA Status: Acute Priority: High Current Visit: Yes - Problem List Review Problem List Initiated/Reviewed/Updated: Yes - My Orders Last 24 Hours: My Active Orders 06/20/20 09:15 Potassium Chloride [Klor-Con M20] 40 meq PO BID - Plan Plan:: Day of admission - 06/19/2020 The patient is a 44-year-old lady who was admitted primarily out of concern for possible infection secondary to her recent PFO repair. The patient did have c hills and rigors although this was not associated with a fever. The patient also was not noted to have a specific source of infection. She did have elevations of her CRP. She also had elevations of her troponins which can be explained secondary to the PFO repair. The PFO was repaired intravascularly on June 17, 2020. Blood cultures have been obtained. Patient has been started on Zosyn out of concern for problems associated with the PFO. A report had indicated that the patient had IV antibiotics prior to the surgery. Patient had low magnesium and is also has been in replaced. Because of the patient's recent surgery she will be kept on telemetry. The patient will have a regular diet as tolerated. Repeat laboratory studies have been ordered for the morning. She is also have regular diet as tolerated. The patient has been encouraged to ambulate. Because the patient is currently taking Plavix and aspirin I recommended the patient have SCDs for DVT prophylaxis. Patient should be appropriate for discharge in 1 to 2 days. 06/20/2020 Patient continues to do quite well. She denies any infectious symptoms at this time and states she feels quite good. Groin wound appears to be healing appropriately with no drainage, redness, or other signs of infection. As noted on admission chest x-ray was clear and UA shows no signs of infection. Leukocytosis and CRP elevation are likely due to patient's cardiovascular procedures to repair her PFO. We will continue Zosyn today awaiting second day of blood cultures, as these have been negative thus far. Will likely switch to p.o. antibiotics and discharge tomorrow if patient remains symptom-free. Potas sium today was 3.5 and this will be supplemented. WBC today is stable at 13.55. GFR remains greater than 60. CRP is up to 12.4, again this is likely secondary to her prior procedure and stress reaction. Magnesium 2.0. We will continue to monitor for signs of infection. Plan for discharge tomorrow pending continued stability/improvement. She has had no fevers.
--- NOTE | 2020-06-20 12:11 | PCM.PN ---
- General Info Date of Service: 06/20/20 Admission Dx/Problem (Free Text): Admission Diagnosis/Problem Admission Diagnosis/Problem Bacteremia Subjective Update: 06/20/20 afebrile/vss b.p improved.// chills resolved/ mild sore throat( which started before procedure she states/mild n.p cough) tast and smell good. reviewed hx again. no covid exposures she is aware of. no screening done before procedure but on admission here yest. neg. lab negative. blood cultures so far. p.e. mult tattoos/ iv. sight clean. arterial puncture sight clean . lungs clear.\ cor rrr without murmur or findings. abd hungry and benign exam . ext/m.s negative. assess: 1 suspected sepsis after intravascular closure of pfo with neg blood cultures so far treated with zosyn and feeling better. 2: possible uri prior to proc. 3: negative covid screen on admission. 4: previous paradoxic emboli and cva . 5: no known clotting abnormalities . plan cont current antibiotics x 48 hours and reculture blood off antibiotics x 24 hours as o.p . close cardiac follow up boh - Patient Data Vitals - Most Recent: Last Vital Signs Temp 36.7 C 06/20/20 11:37 Pulse 71 06/20/20 11:37 Resp 14 06/20/20 11:37 BP 111/86 06/20/20 11:37 Pulse Ox 97 06/20/20 11:37 Weight - Most Recent: 55.474 kg I&O - Last 24 Hours: Intake & Output 06/19/20 06/20/20 06/20/20 22:59 06:59 14:59 Intake Total 1390 900 Output Total 600 Balance 1390 300 Lab Results Last 24 Hours: Laboratory Results - last 24 hr 06/20/20 06/20/20 Range/Units 04:55 04:55 WBC 13.55 H (3.98-10.04) K/mm3 RBC 3.43 L (3.98-5.22) M/mm3 Hgb 11.0 L (11.2-15.7) gm/dl Hct 33.5 L (34.1-44.9) % MCV 97.7 H (79.4-94.8) fl MCH 32.1 (25.6-32.2) pg MCHC 32.8 (32.2-35.5) g/dl RDW Std Deviation 43.0 (36.4-46.3) fL Plt Count 150 L (182-369) K/mm3 MPV 10.7 (9.4-12.3) fl Neut % (Auto) 73.9 H (34.0-71.1) % Lymph % (Auto) 13.9 L (19.3-51.7) % [place] % (Auto) 10.9 (4.7-12.5) % Eos % (Auto) 1.0 (0.7-5.8) Baso % (Auto) 0.1 (0.1-1.2) % Neut # (Auto) 9.99 H (1.56-6.13) K/mm3 Lymph # (Auto) 1.89 (1.18-3.74) K/mm3 [place] # (Auto) 1.48 H (0.24-0.36) K/mm3 Eos # (Auto) 0.14 (0.04-0.36) K/mm3 Baso # (Auto) 0.02 (0.01-0.08) K/mm3 Sodium 142 (136-145) mEq/L Potassium 3.5 (3.5-5.1) mEq/L Chloride 110 H (98-107) mEq/L Carbon Dioxide 23 (21-32) mEq/L Anion Gap 12.5 (5-15) BUN 9 (7-18) mg/dL Creatinine 0.7 (0.55-1.02) mg/dL Est Cr Clr Drug Dosing 76.58 mL/min Estimated GFR (MDRD) > 60 (>60) mL/min BUN/Creatinine Ratio 12.9 L (14-18) Glucose 95 (74-106) mg/dL Calcium 8.3 L (8.5-10.1) mg/dL Magnesium 2.0 (1.8-2.4) mg/dl Total Bilirubin 0.8 (0.2-1.0) mg/dL AST 12 L (15-37) U/L ALT 9 L (14-59) U/L Alkaline Phosphatase 35 L (46-116) U/L C-Reactive Protein 12.4 H* (<1.0) mg/dL Total Protein 5.9 L (6.4-8.2) g/dl Albumin 2.7 L (3.4-5.0) g/dl Globulin 3.2 gm/dL Albumin/Globulin Ratio 0.8 L (1-2) Mynor Results Last 24 Hours: Microbiology 06/18/20 17:10 Aerobic Blood Culture - Preliminary Blood - Venous - Lab Draw NO GROWTH AFTER 1 DAY Anaerobic Blood Culture - Preliminary NO GROWTH AFTER 1 DAY 06/18/20 16:50 Aerobic Blood Culture - Preliminary Blood - Venous NO GROWTH AFTER 1 DAY Anaerobic Blood Culture - Preliminary NO GROWTH AFTER 1 DAY Med Orders - Current: Current Medications Acetaminophen (Acetaminophen 325 Mg Tab) 650 mg PO Q6H PRN PRN Reason: Fever Last Admin: 06/20/20 09:28 Dose: 650 mg Documented by: Aspirin (Aspirin 81 Mg Tab.Chew) 81 mg PO DAILY [facility] Last Admin: 06/20/20 08:24 Dose: 81 mg Documented by: Atorvastatin Calcium (Atorvastatin 20 Mg Tab) 20 mg PO BEDTIME [facility] Last Admin: 06/19/20 20:39 Dose: 20 mg Documented by: Clopidogrel Bisulfate (Clopidogrel 75 Mg Tab) 75 mg PO DAILY [facility] Last Admin: 06/20/20 08:23 Dose: 75 mg Documented by: Docusate Sodium (Docusate Sodium 100 Mg Cap) 100 mg PO BID PRN PRN Reason: Constipation Piperacillin Sod/Tazobactam (Sod 4.5 gm/ Sodium Chloride) 100 mls @ 25 mls/hr IV Q8H [facility] Last Admin: 06/20/20 08:23 Dose: 25 mls/hr Documented by: Lorazepam (Lorazepam 2 Mg/Ml Sdv) 0.5 mg IVPUSH Q4H PRN PRN Reason: Rigors Last Admin: 06/19/20 16:25 Dose: 0.5 mg Documented by: Ondansetron HCl (Ondansetron 4 Mg Tab.Dis) 4 mg PO Q4H PRN PRN Reason: nausea, able to take PO Oxycodone HCl (Oxycodone 5 Mg Tab) 5 mg PO Q4H PRN PRN Reason: Pain (moderate 4-6) Last Admin: 06/19/20 16:27 Dose: 5 mg Documented by: Potassium Chloride (Potassium Chloride 20 Meq Tab.Er) 40 meq PO BID [facility] Stop: 06/20/20 21:01 Last Admin: 06/20/20 09:29 Dose: 40 meq Documented by: Temazepam (Temazepam 15 Mg Cap) 15 mg PO BEDTIME PRN PRN Reason: Sleep Discontinued Medications Acetaminophen (Acetaminophen 325 Mg Tab) 975 mg PO ONETIME ONE Stop: 06/18/20 16:46 Last Admin: 06/18/20 17:39 Dose: 975 mg Documented by: Dextrose/Sodium Chloride (Dextrose 5%-Normal Saline) 1,000 mls @ 999 mls/hr IV ASDIRECTED [facility] Last Admin: 06/18/20 17:39 Dose: 999 mls/hr Documented by: Linezolid 600 mg/ Premix 300 mls @ 300 mls/hr IV ONETIME ONE Stop: 06/18/20 18:01 Last Admin: 06/18/20 18:10 Dose: 300 mls/hr Documented by: Vancomycin HCl 1.25 gm/ Sodium (Chloride) 250 mls @ 250 mls/hr IV ONETIME ONE Stop: 06/18/20 20:36 Last Admin: 06/18/20 20:51 Dose: 250 mls/hr Documented by: Lactated Ringer's (Ringers, Lactated) 1,000 mls @ 500 mls/hr IV ASDIRECTED [facility] Last Admin: 06/18/20 21:12 Dose: 500 mls/hr Documented by: Potassium Chloride 10 meq/ (Premix) 100 mls @ 100 mls/hr IV Q1H [facility] Stop: 06/18/20 21:44 Last Admin: 06/18/20 22:39 Dose: 100 mls/hr Documented by: Piperacillin Sod/Tazobactam (Sod 4.5 gm/ Sodium Chloride) 100 mls @ 200 mls/hr IV ONETIME ONE Stop: 06/19/20 08:29 Last Admin: 06/19/20 08:18 Dose: 200 mls/hr Documented by: Magnesium Sulfate (Magnesium Sulfate In Water 2 Gm/50 Ml) 2 gm in 50 mls @ 25 mls/hr IV ONETIME ONE Stop: 06/19/20 10:59 Last Admin: 06/19/20 08:56 Dose: 25 mls/hr Documented by: Sodium Chloride (Normal Saline) 500 mls @ 999 mls/hr IV ONETIME ONE Stop: 06/19/20 21:04 Last Admin: 06/19/20 21:09 Dose: 999 mls/hr Documented by: Lorazepam (Lorazepam 2 Mg/Ml Sdv) 0.5 mg IVPUSH ONETIME ONE Stop: 06/19/20 10:31 Last Admin: 06/19/20 10:30 Dose: 0.5 mg Documented by: - Patient Data Lab Results Last 24 hrs: Laboratory Results - last 24 hr 06/20/20 06/20/20 Range/Units 04:55 04:55 WBC 13.55 H (3.98-10.04) K/mm3 RBC 3.43 L (3.98-5.22) M/mm3 Hgb 11.0 L (11.2-15.7) gm/dl Hct 33.5 L (34.1-44.9) % MCV 97.7 H (79.4-94.8) fl MCH 32.1 (25.6-32.2) pg MCHC 32.8 (32.2-35.5) g/dl RDW Std Deviation 43.0 (36.4-46.3) fL Plt Count 150 L (182-369) K/mm3 MPV 10.7 (9.4-12.3) fl Neut % (Auto) 73.9 H (34.0-71.1) % Lymph % (Auto) 13.9 L (19.3-51.7) % [place] % (Auto) 10.9 (4.7-12.5) % Eos % (Auto) 1.0 (0.7-5.8) Baso % (Auto) 0.1 (0.1-1.2) % Neut # (Auto) 9.99 H (1.56-6.13) K/mm3 Lymph # (Auto) 1.89 (1.18-3.74) K/mm3 [place] # (Auto) 1.48 H (0.24-0.36) K/mm3 Eos # (Auto) 0.14 (0.04-0.36) K/mm3 Baso # (Auto) 0.02 (0.01-0.08) K/mm3 Sodium 142 (136-145) mEq/L Potassium 3.5 (3.5-5.1) mEq/L Chloride 110 H (98-107) mEq/L Carbon Dioxide 23 (21-32) mEq/L Anion Gap 12.5 (5-15) BUN 9 (7-18) mg/dL Creatinine 0.7 (0.55-1.02) mg/dL Est Cr Clr Drug Dosing 76.58 mL/min Estimated GFR (MDRD) > 60 (>60) mL/min BUN/Creatinine Ratio 12.9 L (14-18) Glucose 95 (74-106) mg/dL Calcium 8.3 L (8.5-10.1) mg/dL Magnesium 2.0 (1.8-2.4) mg/dl Total Bilirubin 0.8 (0.2-1.0) mg/dL AST 12 L (15-37) U/L ALT 9 L (14-59) U/L Alkaline Phosphatase 35 L (46-116) U/L C-Reactive Protein 12.4 H* (<1.0) mg/dL Total Protein 5.9 L (6.4-8.2) g/dl Albumin 2.7 L (3.4-5.0) g/dl Globulin 3.2 gm/dL Albumin/Globulin Ratio 0.8 L (1-2) Result Diagrams: 06/20/20 04:55 06/20/20 04:55 Mynor Results Last 24 hrs: Microbiology 06/18/20 17:10 Aerobic Blood Culture - Preliminary Blood - Venous - Lab Draw NO GROWTH AFTER 1 DAY Anaerobic Blood Culture - Preliminary NO GROWTH AFTER 1 DAY 06/18/20 16:50 Aerobic Blood Culture - Preliminary Blood - Venous NO GROWTH AFTER 1 DAY Anaerobic Blood Culture - Preliminary NO GROWTH AFTER 1 DAY Sepsis Event Note - Evaluation Sepsis Screening Result: No Definite Risk - Focused Exam Vital Signs: Vital Signs Temp Pulse Resp BP Pulse Ox 06/20/20 11:37 36.7 C 71 14 111/86 97 06/20/20 07:26 36.9 C 79 90/59 L 100 06/20/20 05:42 36.9 C 72 16 91/74 97 06/20/20 01:08 36.9 C 72 18 86/66 L 96 - Problem List & Annotations (1) Bacteremia SNOMED Code(s): 4021914 Code(s): R78.81 - BACTEREMIA Status: Acute Priority: Medium Current Visit: Yes Onset Date: ~06/19/20 Annotation/Comment:: cultures ngsf (2) Elevated C-reactive protein (CRP) SNOMED Code(s): 707803372297605 Code(s): R79.82 - ELEVATED C-REACTIVE PROTEIN (CRP) Status: Acute Priority: Medium Current Visit: Yes Onset Date: ~06/19/20 Annotation/Comment:: recheck in am (3) Elevated troponin SNOMED Code(s): 881631667, 165597404, 030310920 Code(s): R77.8 - OTHER SPECIFIED ABNORMALITIES OF PLASMA PROTEINS Status: Acute Priority: Low Current Visit: Yes Onset Date: ~06/19/20 Annotation/Comment:: no hx of anticoagulation and not aware of disorder./ bleeding or thrombosis previously (4) Hypokalemia SNOMED Code(s): 12101671 Code(s): E87.6 - HYPOKALEMIA Status: Acute Priority: Low Current Visit: Yes Onset Date: ~06/20/20 (5) Status post patent foramen ovale closure SNOMED Code(s): 885668342, 433410705, 607903684 Code(s): Z87.74 - PERSONAL HISTORY OF CONGENITAL MALFORM OF HEART AND CIRC SYS Status: Acute Priority: High Current Visit: Yes Onset Date: ~06/20/20 Annotation/Comment:: s/p closure of pfo (6) Blood coagulation disorder SNOMED Code(s): 91014589 Code(s): D68.9 - COAGULATION DEFECT, UNSPECIFIED Status: Chronic Priority: Medium Current Visit: Yes - Problem List Review Problem List Initiated/Reviewed/Updated: Yes - Plan Plan:: Day of admission - 06/19/2020 The patient is a 44-year-old lady who was admitted primarily out of concern for possible infection secondary to her recent PFO repair. The patient did have chills and rigors although this was not associated with a fever. The patient also was not noted to have a specific source of infection. She did have elev ations of her CRP. She also had elevations of her troponins which can be explained secondary to the PFO repair. The PFO was repaired intravascularly on June 17, 2020. Blood cultures have been obtained. Patient has been started on Zosyn out of concern for problems associated with the PFO. A report had indicated that the patient had IV antibiotics prior to the surgery. Patient had low magnesium and is also has been in replaced. Because of the patient's recent surgery she will be kept on telemetry. The patient will have a regular diet as tolerated. Repeat laboratory studies have been ordered for the morning. She is also have regular diet as tolerated. The patient has been encouraged to ambulate. Because the patient is currently taking Plavix and aspirin I recommended the patient have SCDs for DVT prophylaxis. Patient should be appropriate for discharge in 1 to 2 days. 06/20/2020 Patient continues to do quite well. She denies any infectious symptoms at this time and states she feels quite good. Groin wound appears to be healing appropriately with no drainage, redness, or other signs of infection. As noted on admission chest x-ray was clear and UA shows no signs of infection. Leukocytosis and CRP elevation are likely due to patient's cardiovascular procedures to repair her PFO. We will continue Zosyn today awaiting second day of blood cultures, as these have been negative thus far. Will likely switch to p.o. antibiotics and discharge tomorrow if patient remains symptom-free. Potassium today was 3.5 and this will be supplemented. WBC today is stable at 13.55. GFR remains greater than 60. CRP is up to 12.4, again this is likely secondary to her prior procedure and stress reaction. Magnesium 2.0. We will continue to monitor for signs of infection. Plan for discharge tomorrow pending continued stability/improvement. She has had no fevers.
[2020-06-20] MEDS: atorvaSTATin 20 MG Tab PO SCH (20:11)
[2020-06-21] MEDS: Aspirin 81 MG Tab.Chew PO SCH (08:19)
[2020-06-21] MEDS: Clopidogrel 75 MG Tab PO SCH (08:19)
[2020-06-21] MEDS: Piperacillin/Tazobactam 4.5 GM in Sodium Chloride 0.9% 100 ML IV SCH (08:20)
[2020-06-21] MEDS ORDERED: Magnesium Oxide 400 MG Tab PO ONE (09:13)
--- NOTE | 2020-06-21 12:08 | PCM.DCSUM1 ---
Discharge Summary - Hospital Course HPI Initial Comments: The patient is a 44-year-old lady who had presented to the emergency department after developing chills and rigors prior to presentation. The patient says that she was traveling home from [facility] in [place] after she had undergone an intravascular repair of a patent foramen ovale. The patient had a right to left shunt and as a result of this it was thought that she had suffered a small stroke which had resulted in visual deficits. The patient has partial blindness of both eyes although more notable in her right eye. The patient has reported fatigue and sometimes will have generalized muscle aches. She is also reporting that she has a headache. She is currently taking aspirin and Plavix. Diagnosis: Stroke: No - Discharge Data Discharge Date: 06/21/20 (Admit date: 06/18/2020) Discharge Disposition: Home, Self-Care 01 Condition: Good - Referral to Home Health Primary Care Physician: Umesh Montalvo MD - Discharge Diagnosis/Problem(s) (1) Blood coagulation disorder SNOMED Code(s): 25907716 ICD Code: D68.9 - COAGULATION DEFECT, UNSPECIFIED Status: Chronic Priority: Medium Current Visit: Yes (2) Fever and chills SNOMED Code(s): 583121147 ICD Code: R50.9 - FEVER, UNSPECIFIED Status: Resolved Priority: High Current Visit: Yes (3) Status post patent foramen ovale closure SNOMED Code(s): 331028553, 545760925, 911699980 ICD Code: Z87.74 - PERSONAL HISTORY OF CONGENITAL MALFORM OF HEART AND CIRC SYS Status: Acute Priority: High Current Visit: Yes Onset Date: ~06/20/20 Problem Details: s/p closure of pfo (4) CVA, Cerebrovascular accident SNOMED Code(s): 671087904 ICD Code: I63.9 - CEREBRAL INFARCTION, UNSPECIFIED Status: Chronic Prio rity: Low Current Visit: Yes Problem Details: Old, visual deficits (5) Elevated troponin SNOMED Code(s): 091068356, 760632773, 190780538 ICD Code: R77.8 - OTHER SPECIFIED ABNORMALITIES OF PLASMA PROTEINS Status: Acute Priority: Low Current Visit: Yes Onset Date: ~06/19/20 Problem Details: no hx of anticoagulation and not aware of disorder./ bleeding or thrombosis previously (6) Leukocytosis SNOMED Code(s): 245121933, 895635982 ICD Code: D72.829 - ELEVATED WHITE BLOOD CELL COUNT, UNSPECIFIED Status: Acute Priority: High Current Visit: Yes Qualifiers: Leukocytosis type: unspecified Qualified Code(s): D72.829 - Elevated white blood cell count, unspecified (7) Elevated C-reactive protein (CRP) SNOMED Code(s): 251186479143599 ICD Code: R79.82 - ELEVATED C-REACTIVE PROTEIN (CRP) Status: Acute Priority: Medium Current Visit: Yes Onset Date: ~06/19/20 Problem Details: recheck in am (8) Hypokalemia SNOMED Code(s): 25583656 ICD Code: E87.6 - HYPOKALEMIA Status: Acute Priority: Low Current Visit: Yes Onset Date: ~06/20/20 - Patient Summary/Data Labs Pending at D/C: Blood cultures negative after 2 days. Recommended Follow-up Testing/Procedures: Recommend follow-up with primary care provider within 5 to 7 days of discharge, sooner if needed. -Recommend recheck CBC, CMP, and magnesium. -Consider repeat CRP. Hospital Course: This is a 44-year-old female who presented to ED on 06/18/2020 with severe chills and rigors which is started earlier in the day. She been discharged from [facility] in [place] earlier in the morning after having an endovascular repair of a large patent foramen ovale by Dr. Mckee on June 18, 2020. Prior to this she had had a CVA which caused an infarct on the left medial occipital and temporal lobe without hemorrhage. She is also known to have a heterozygous prothrombin mutation but during her hospitalization hematology felt like this was unlikely the cause of her stroke. Initially there concerned that she may be bacteremic. Chest x-ray was obtained and no acute changes were noted. UA was negative. White count on admission was 11.12 there were 83% neutrophils but no bandemia. CRP was 3.2 and proBNP was 558. Troponin was mildly elevated 0.058 and it is felt that this was likely mildly elevated due to her cardiac procedure. Dr. Mckee, [employer]arrow worker helper was contacted by the ED provider and reported that the procedure was done under sterile conditions and she was given cefazolin preoperatively. Patient did report that she did have a cough and there is questionable prior illness before the procedure was performed. She was started on vancomycin and Zosyn and was admitted to the ICU as an overflow patient. On the floor patient reported that she was feeling much better. Vancomycin was stopped and Zosyn was continued. She had no demonstratable fevers. She was on telemetry and there were no concerns with arrhythmias. Magnesium was low and was supplemented. Potassium was also low and was supplemented. Lactic acid was within normal limits at 1.1. CRP did increase from 3.2 to 6.9 to 12.4 but then decreased to 11.0. Likewise WBC did increase from 11.12 to 13.08 to 13.55 and then back down to 12.14. As noted we were unable to find any obvious sources of infection. Clinically patient did continue to improve and reported she felt very good. SARS-CoV-2 RNA was screen was negative. Blood cultures were negative x2 days. Because of this she will be switched to Augmentin 875/125 mg 1 tablet twice daily for 4 more days. She was instructed to take her first dose tonight, 06/21/2020. She is also given 4 days of 400 mg p.o. daily magnesium supplementation. We discussed her smoking status and she did report that she has been rapidly decreasing her cigarette usage. She denied any need for cessation assistance. She was given a list of resources and instructed to follow-up with her primary care provider should she change her mind. Home medications were continued. She was instructed to follow-up with her primary care provider within 5 to 7 days of discharge or sooner if needed. Recommend PCP recheck CBC, CMP, magnesium and consider repeat CRP at that visit. She was instructed to follow-up with cardiology as before. She was instructed to return the emergency room or contact her primary care provider should symptoms such as fever, chills, rigors, or other infectious symptoms return. She was discharged home today. - Patient Instructions Diet: Usual Diet as Tolerated Activity: As Tolerated Showering/Bathing: May Shower Notify Provider of: Fever, Increased Pain, Nausea and/or Vomiting Other/Special Instructions: Follow-up with primary care provider within 5 to 7 days of discharge, sooner if needed. Resume home medications as directed. Follow-up with cardiology as per before. You were prescribed an antibiotic at discharge. Take this as prescribed until completed, even if you are feeling 100% better. Your first dose of antibiotic should be tonight, 06/21/2020. Your magnesium was low here and was supplemented. You will be prescribed a 4-day course of oral magnesium tablets. Your primary care provider can monitor this in the future. We discussed your smoking status. You indicated that you do not want nicotine patches at this time. Should you change your mind you may contact your primary care provider or resources in the area such as [employer] or the [facility] tobacco cessation program. Should symptoms return or worsen contact primary care provider or return to the emergency room. - Discharge Plan *PRESCRIPTION DRUG MONITORING PROGRAM REVIEWED*: Not Applicable *COPY OF PRESCRIPTION DRUG MONITORING REPORT IN PATIENT RANULFO: Not Applicable Prescriptions/Med Rec: Amoxicillin/Clavulanate K [Augmentin 875-125 MG] 1 tab PO BID #8 tablet Magnesium Oxide [Magnesium] 400 mg PO DAILY #4 tablet Tobacco Cessation Medication: Prescription Refused Home Medications: Home Meds Aspirin 81 mg PO DAILY 03/31/20 [History] Clopidogrel [Plavix] 75 mg PO DAILY 03/31/20 [History] atorvaSTATin [Lipitor] 20 mg PO BEDTIME 03/31/20 [History] Amoxicillin/Clavulanate K [Augmentin 875-125 MG] 1 tab PO BID #8 tablet 06/21/20 [Rx] Magnesium Oxide [Magnesium] 400 mg PO DAILY #4 tablet 06/21/20 [Rx] Oxygen Therapy Mode: Room Air Patient Handouts: Steps to Quit Smoking Referrals: Umesh Montalvo MD [Primary Care Provider] - - Discharge Summary/Plan Comment DC Time >30 min.: Yes (45 mins) - General Info Date of Service: 06/21/20 Admission Dx/Problem (Free Text: Admission Diagnosis/Problem Admission Diagnosis/Problem Bacteremia Functional Status: Reports: Pain Controlled, Tolerating Diet, Ambulating, Urinating. Denies: New Symptoms - Review of Systems General: Reports: No Symptoms. Denies: Fever, Weakness, Fatigue, Malaise, Chills HEENT: Reports: No Symptoms. Denies: Headaches, Sore Throat Pulmonary: Reports: No Symptoms, Cough (occasional ). Denies: Shortness of Breath, Sputum, Wheezing Cardiovascular: Reports: No Symptoms. Denies: Chest Pain, Palpitations, Dyspnea on Exertion, Edema Gastrointestinal: Reports: No Symptoms. Denies: Abdominal Pain, Constipation, Diarrhea, Nausea, Vomiting Genitourinary: Reports: No Symptoms. Denies: Pain Musculoskeletal: Reports: No Symptoms Skin: Reports: No Symptoms. Denies: Cyanosis Neurological: Reports: Pre-Existing Deficit (Baseline vision issues secondary to prior CVA.). Denies: Confusion, Difficulty Walking, Gait Disturbance Psychiatric: Reports: No Symptoms - Patient Data Vitals - Most Recent: Last Vital Signs Temp 98.2 F 06/21/20 08:18 Pulse 64 06/21/20 08:18 Resp 20 06/21/20 08:18 BP 90/53 L 06/21/20 08:18 Pulse Ox 98 06/21/20 08:18 Weight - Most Recent: 116 lb 14.4 oz I&O - Last 24 hours: Intake & Output 06/20/20 06/21/20 06/21/20 22:59 06:59 14:59 Intake Total 1170 560 360 Output Total 600 Balance 1170 -40 360 Lab Results - Last 24 hrs: Laboratory Results - last 24 hr 06/21/20 06/21/20 06/21/20 Range/Units 04:36 04:36 04:36 WBC 12.14 H (3.98-10.04) K/mm3 RBC 3.49 L (3.98-5.22) M/mm3 Hgb 11.3 (11.2-15.7) gm/dl Hct 33.5 L (34.1-44.9) % MCV 96.0 H (79.4-94.8) fl MCH 32.4 H (25.6-32.2) pg MCHC 33.7 (32.2-35.5) g/dl RDW Std Deviation 41.8 (36.4-46.3) fL Plt Count 177 L (182-369) K/mm3 MPV 10.8 (9.4-12.3) fl Neut % (Auto) 68.1 (34.0-71.1) % Lymph % (Auto) 20.3 (19.3-51.7) % [place] % (Auto) 9.6 (4.7-12.5) % Eos % (Auto) 1.6 (0.7-5.8) Baso % (Auto) 0.2 (0.1-1.2) % Neut # (Auto) 8.28 H (1.56-6.13) K/mm3 Lymph # (Auto) 2.46 (1.18-3.74) K/mm3 [place] # (Auto) 1.16 H (0.24-0.36) K/mm3 Eos # (Auto) 0.19 (0.04-0.36) K/mm3 Baso # (Auto) 0.03 (0.01-0.08) K/mm3 Sodium 145 (136-145) mEq/L Potassium 4.2 (3.5-5.1) mEq/L Chloride 109 H (98-107) mEq/L Carbon Dioxide 24 (21-32) mEq/L Anion Gap 16.2 H (5-15) BUN 8 (7-18) mg/dL Creatinine 0.7 (0.55-1.02) mg/dL Est Cr Clr Drug Dosing 76.58 mL/min Estimated GFR (MDRD) > 60 (>60) mL/min BUN/Creatinine Ratio 11.4 L (14-18) Glucose 102 (74-106) mg/dL Calcium 8.7 (8.5-10.1) mg/dL Magnesium 1.8 (1.8-2.4) mg/dl C-Reactive Protein 11.0 H* (<1.0) mg/dL CELSO Results - Last 24 hrs: Microbiology 06/18/20 17:10 Aerobic Blood Culture - Preliminary Blood - Venous - Lab Draw NO GROWTH AFTER 2 DAYS Anaerobic Blood Culture - Preliminary NO GROWTH AFTER 2 DAYS 06/18/20 16:50 Aerobic Blood Culture - Preliminary Blood - Venous NO GROWTH AFTER 2 DAYS Anaerobic Blood Culture - Preliminary NO GROWTH AFTER 2 DAYS Med Orders - Current: Current Medications Acetaminophen (Acetaminophen 325 Mg Tab) 650 mg PO Q6H PRN PRN Reason: Fever Last Admin: 06/20/20 09:28 Dose: 650 mg Documented by: Aspirin (Aspirin 81 Mg Tab.Chew) 81 mg PO DAILY [facility] Last Admin: 06/21/20 08:19 Dose: 81 mg Documented by: Atorvastatin Calcium (Atorvastatin 20 Mg Tab) 20 mg PO BEDTIME [facility] Last Admin: 06/20/20 20:11 Dose: 20 mg Documented by: Clopidogrel Bisulfate (Clopidogrel 75 Mg Tab) 75 mg PO DAILY [facility] Last Admin: 06/21/20 08:19 Dose: 75 mg Documented by: Docusate Sodium (Docusate Sodium 100 Mg Cap) 100 mg PO BID PRN PRN Reason: Constipation Piperacillin Sod/Tazobactam (Sod 4.5 gm/ Sodium Chloride) 100 mls @ 25 mls/hr IV Q8H [facility] Last Admin: 06/21/20 08:20 Dose: 25 mls/hr Documented by: Lorazepam (Lorazepam 2 Mg/Ml Sdv) 0.5 mg IVPUSH Q4H PRN PRN Reason: Rigors Last Admin: 06/19/20 16:25 Dose: 0.5 mg Documented by: Ondansetron HCl (Ondansetron 4 Mg Tab.Dis) 4 mg PO Q4H PRN PRN Reason: nausea, able to take PO Oxycodone HCl (Oxycodone 5 Mg Tab) 5 mg PO Q4H PRN PRN Reason: Pain (moderate 4-6) Last Admin: 06/19/20 16:27 Dose: 5 mg Documented by: Temazepam (Temazepam 15 Mg Cap) 15 mg PO BEDTIME PRN PRN Reason: Sleep Discontinued Medications Acetaminophen (Acetaminophen 325 Mg Tab) 975 mg PO ONETIME ONE Stop: 06/18/20 16:46 Last Admin: 06/18/20 17:39 Dose: 975 mg Documented by: Dextrose/Sodium Chloride (Dextrose 5%-Normal Saline) 1,000 mls @ 999 mls/hr IV ASDIRECTED [facility] Last Admin: 06/18/20 17:39 Dose: 999 mls/hr Documented by: Linezolid 600 mg/ Premix 300 mls @ 300 mls/hr IV ONETIME ONE Stop: 06/18/20 18:01 Last Admin: 06/18/20 18:10 Dose: 300 mls/hr Documented by: Vancomycin HCl 1.25 gm/ Sodium (Chloride) 250 mls @ 250 mls/hr IV ONETIME ONE Stop: 06/18/20 20:36 Last Admin: 06/18/20 20:51 Dose: 250 mls/hr Documented by: Lactated Ringer's (Ringers, Lactated) 1,000 mls @ 500 mls/hr IV ASDIRECTED [facility] Last Admin: 06/18/20 21:12 Dose: 500 mls/hr Documented by: Potassium Chloride 10 meq/ (Premix) 100 mls @ 100 mls/hr IV Q1H [facility]AR[facility] Stop: 06/18/20 21:44 Last Admin: 06/18/20 22:39 Dose: 100 mls/hr Documented by: Piperacillin Sod/Tazobactam (Sod 4.5 gm/ Sodium Chloride) 100 mls @ 200 mls/hr IV ONETIME ONE Stop: 06/19/20 08:29 Last Admin: 06/19/20 08:18 Dose: 200 mls/hr Documented by: Magnesium Sulfate (Magnesium Sulfate In Water 2 Gm/50 Ml) 2 gm in 50 mls @ 25 mls/hr IV ONETIME ONE Stop: 06/19/20 10:59 Last Admin: 06/19/20 08:56 Dose: 25 mls/hr Documented by: Sodium Chloride (Normal Saline) 500 mls @ 999 mls/hr IV ONETIME ONE Stop: 06/19/20 21:04 Last Admin: 06/19/20 21:09 Dose: 999 mls/hr Documented by: Lorazepam (Lorazepam 2 Mg/Ml Sdv) 0.5 mg IVPUSH ONETIME ONE Stop: 06/19/20 10:31 Last Admin: 06/19/20 10:30 Dose: 0.5 mg Documented by: Magnesium Oxide (Magnesium Oxide 400 Mg Tab) 400 mg PO ONETIME ONE Stop: 06/21/20 09:14 Last Admin: 06/21/20 10:30 Dose: 400 mg Documented by: Potassium Chloride (Potassium Chloride 20 Meq Tab.Er) 40 meq PO BID [facility] Stop: 06/20/20 21:01 Last Admin: 06/20/20 20:11 Dose: 40 meq Documented by: - Exam Quality Assessment: Reports: DVT Prophylaxis. Denies: Supplemental Oxygen, Urine Catheter General: Reports: Alert, Oriented, Cooperative, No Acute Distress HEENT: Reports: Pupils Equal, Pupils Reactive, Mucous Membr. Moist/[place] Neck: Reports: Supple, Trachea Midline Lungs: Reports: Clear to Auscultation, Normal Respiratory Effort Cardiovascular: Reports: Regular Rate, Regular Rhythm GI/Abdominal Exam: Normal Bowel Sounds, Soft, Non-Tender, No Distention (Female) Exam: Deferred Rectal (Female) Exam: Deferred Back Exam: Reports: Normal Inspection, Full Range of Motion Extremities: Normal Inspection, Normal Range of Motion, Non-Tender, No Pedal Edema, Normal Capillary Refill Skin: Reports: Warm, Dry, Intact Wound/Incisions: Reports: Healing Well, No Drainage, Other (Wound to right groin secondary to endovascular procedure. Healing well with no signs of infection.) Neurological: Reports: No New Focal Deficit Psy/Mental Status: Reports: Alert, Normal Affect, Normal Mood *Q Meaningful Use (DIS) - VTE *Q VTE Pharmacological Contraindications *Q: Risk of Bleeding
[2020-06-21 12:14] VITALS: BP 94/62; PULSE 79
== END 2020-06-21 13:11 | disposition home or self-care (01) | DRG 948 ==
LOC: JD.ED 14:52 → JD.ICU 20:03 → JD.MS 06-19 19:23
PROVIDERS: ADMIT Internal Medicine; ATTEND Internal Medicine
DX: R68.83 Chills (without fever) (principal); D68.9 Coagulation defect, unspecified; R77.8 Other specified abnormalities of plasma proteins; D72.829 Elevated white blood cell count, unspecified; E87.6 Hypokalemia; R79.82 Elevated C-reactive protein (CRP); Z20.822 Contact with and (suspected) exposure to COVID-19; H54.7 Unspecified visual loss; E78.00 Pure hypercholesterolemia, unspecified; F17.200 Nicotine dependence, unspecified, uncomplicated; Z71.6 Tobacco abuse counseling; Z79.82 Long term (current) use of aspirin; Z87.74 Personal history of (corrected) congenital malformations of heart and circulatory system; Z79.899 Other long term (current) drug therapy; Z86.73 Personal history of transient ischemic attack (TIA), and cerebral infarction without residual deficits; Z66 Do not resuscitate
CPT/HCPCS: 36415; 71045; 71045-26; 80048; 80053; 81001; 83605; 83735; 83880; 84484; 85007; 85025; 85027; 85610; 85730; 86140; 87040; 93005; 93010; 96365; 99285; 99285-25; A9270-GY; J2020; J2060; J2543; J3370; J3475; J3480; J7030; J7042; J7050; J7120; U0002

== ENCOUNTER 2021-10-11 16:49 | Emergency (ER) | payer MEDICAID ==
[2021-10-11 18:13] VITALS: BP 123/86; PULSE 76
[2021-10-11] MEDS ORDERED: Sodium Chloride 0.9% 10 ML Syringe FLUSH PRN (18:27)
== END 2021-10-11 20:36 | disposition home or self-care (01) ==
LOC: JD.ED 16:49
DX: M54.6 Pain in thoracic spine (principal); E78.00 Pure hypercholesterolemia, unspecified; Z79.82 Long term (current) use of aspirin; Z79.899 Other long term (current) drug therapy
CPT/HCPCS: 36415; 71045; 80053; 83735; 84484; 85025; 85379; 93005; 99284; J3490; 93010

== ENCOUNTER 2024-12-17 12:43 | Emergency (ER) | payer SELFPAY | END 2024-12-17 13:37 | disposition left against medical advice (07) | LOC: JD.ED 12:43 | DX: Z53.21 Procedure and treatment not carried out due to patient leaving prior to being seen by health care provider (principal) ==